=== PATIENT | female | born 1955 | race Caucasian/White ===

== ENCOUNTER 2017-02-27 12:42 | Inpatient (IN) ==
[~2017-02-27 12:42] MED LIST: *HR* Propofol 200 MG/20 ML VIAL IVP ONE
[2017-02-27] MEDS ORDERED: 0.9 % Sodium Chloride 1,000 ML IVC ONE ×2 (14:32→15:43)
[2017-02-27] MEDS ORDERED: Ondansetron 4 MG/2 ML VIAL IVP ONE (14:32)
--- NOTE | 2017-02-27 14:37 | Emergency Department Note ---
Disposition Clinical Impression: Hyperglycemia, Transaminitis, Duodenitis Abdominal pain Qualifiers: Abdominal location: unspecified location Qualified Code(s): R10.9 - Unspecified abdominal pain Anemia Qualifiers: Anemia type: unspecified type Qualified Code(s): D64.9 - Anemia, unspecified Gastritis Qualifiers: Gastritis type: unspecified gastritis Chronicity: unspecified Gastritis bleeding: presence of bleeding unspecified Qualified Code(s): K29.70 - Gastritis , unspecified, without bleeding Chronic kidney disease Qualifiers: Chronic kidney disease stage: unspecified stage Qualified Code(s): N18.9 - Chronic kidney disease, unspecified Disposition: Admitted As Inpatient Condition: Fair Recheck wound or abnormal lab - General Chief Complaint: ED Recheck/Abnormal Lab/Rx Stated Complaint: Abnormal labs, sent by PCP Time Seen by Provider: 02/27/17 14:07 Source: patient Mode of arrival: ambulatory Limitations: no limitations Nursing Notes Reviewed: Yes Vital Signs Reviewed: Yes - History of Present Illness HPI Narrative: 61-year-old female history of diabetes, COPD presents for evaluation after abnormal labs. Patient had abnormal labs obtained yesterday. Patient states she has not been feeling well for the past week. Patient describes several symptoms including nausea and vomiting. Patient also describes fevers. Patient also describes abdominal pain. Notes it to be right and left-sided. Patient states that she had lab work done and was told to come to the ER for evaluation. Patient was expecting direct admission. Patient also notes some chest pain and short of breath. Denies any urinary symptoms. No diarrhea or constipation. Patient states she has been taking her diabetes medicine as she is directed with insulin however the patient has not been taking any oral diabetes medicine for the past month. Patient states she has not taken her anxiety or pain medicine today. - Related Data Home Medications Medication Instructions Recorded Confirmed Albuterol Neb [AccuNeb] 0.63 mg IH Q6H PRN 05/30/15 02/27/17 Albuterol Sulfate [Albuterol 2 puff IH Q4HR PRN 05/30/15 02/27/17 Inhaler] Docusate [Colace] 200 mg PO DAILY 05/30/15 02/27/17 Fluticasone/Salmeterol [Advair 1 each IH BID 05/30/15 02/27/17 500-50 Diskus] Insulin ASPART [NovoLOG] 0 unit SQ TIDWM 05/30/15 02/27/17 Insulin Glargine,Hum.rec.anlog 40 unit SQ BID 05/30/15 02/27/17 [Lantus Solostar] Ipratropium/Albuterol Neb [Duoneb] 3 ml IH Q6HR PRN 05/30/15 02/27/17 Nitroglycerin 0.4 mg SL Q5MIN PRN 05/30/15 02/27/17 Levothyroxine [Synthroid] 175 mcg PO QAM 02/27/17 02/27/17 Quetiapine Fumarate [SEROquel] 25 mg PO QAM 02/27/17 02/27/17 Quetiapine Fumarate [SEROquel] 100 mg PO HS 02/27/17 02/27/17 Simvastatin [Zocor] 20 mg PO HS 02/27/17 02/27/17 carBAMazepine [Tegretol] 400 mg PO BID 02/27/17 02/27/17 Allergies Allergy/AdvReac Type Severity Reaction Status Date / Time penicillin G AdvReac Hives Verified 02/27/17 12:47 Sulfa (Sulfonamide AdvReac See Verified 02/27/17 12:47 Antibiotics) Comments sunflower oil AdvReac Swelling Verified 02/27/17 12:47 of Lip/Tongue/Throat All systems ED: reviewed and negative except as stated. Constitutional: Reports: as per HPI, fever Eyes: Reports: as per HPI ENT ED: Reports: as per HPI Cardiovascular: Reports: as per HPI, chest pain Respiratory: Reports: as per HPI, cough, dyspnea Gastrointestinal: Reports: as per HPI, abdominal pain, nausea, vomiting Genitourinary: Reports: as per HPI Musculoskeletal: Reports: as per HPI Integumentary: Reports: as per HPI Neurological: Reports: as per HPI Psychiatric: Reports: as per HPI Endocrine: Reports: as per HPI Past Medical History - Past Medical History Attestation: Yes The following information was validated with the patient. Medical history: Reports: COPD, diabetes, hypertension, kidney stones, thyroid disease Surgical history: Reports: cholecystectomy, colectomy, coronary bypass (CABG), hysterectomy Psychiatric history: Reports: anxiety, bipolar, depression TANK PUMPER history: Reports: no TANK PUMPER history - Social History Smoking Status: Former smoker Smokeless Tobacco Status: No Alcohol use: Reports: occasionally Drug use: Reports: marijuana Physical Exam - General Limitations: no limitations General appearance: alert, in no apparent distress, anxious - Head Head exam: atraumatic, normocephalic, normal inspection - Eye Eye exam: Present: normal appearance, EOMI - ENT ENT exam: normal exam, mucous membranes moist - Neck Neck exam: Present: normal inspection, trachea midline - Chest Chest inspection: Present: normal inspection, symmetric chest wall rise - Respiratory Respiratory exam: Present: prolonged expiratory phase, other (Diffusely decreased breath sounds). Absent: respiratory distress - Cardiovascular Cardiovascular exam: Present: regular rate, normal rhythm - Abdominal Exam Abdominal exam: Present: soft, Non-Tender. Absent: guarding, rebound - Extremities Exam Extremities exam: Present: normal inspection. Absent: pedal edema - Back Exam Back exam: Present: normal inspection. Absent: CVA tenderness (R), CVA tenderness (L) - Neurological Exam Neurological exam: Present: alert, oriented X3 - Skin Skin exam: Present: warm, dry, intact, normal color Course Course Narrative: Patient's labs reviewed from yesterday. Patient does have hyperglycemia as well as chronic kidney disease. Patient will get repeat lab work today including IV fluids, antibiotics, cardiac evaluation with EKG and troponin. Disposition is pending. - Reevaluation(s) Reevaluation #1: Patient primary care doctor in the ED to talk with the patient. States that the patient is not very compliant with home diabetes medicines. Time: 16:05 Reevaluation #2: Patient's lab work reviewed. Patient does not appear to be hyperglycemic. This was discussed with the patient notes that she needs better glycemic control. Patient states she has not taking of her pain medicine today. Patient will be redosed her pain medicine. Also get CT imaging of the patient' s abdomen and pelvis. Time: 16:32 Reevaluation #3: Patient updated on plan of care. Patient will be admitted for pain control, dietary modification, glycemic control. Patient does have inflammation around her liver consistent with duodenitis. Hepatitis. Patient does not have a gallbladder. Patient abdominal exam is nonsurgical. Time: 18:36 Vital Signs Temperature 98.0 F 02/27/17 12:47 Pulse Rate 81 02/27/17 12:47 Respiratory Rate 18 02/27/17 12:47 Blood Pressure 149/83 02/27/17 12:47 O2 Sat by Pulse Oximetry 98 02/27/17 12:47 Temperature 98.0 F 02/27/17 12:47 Pulse Rate 65 02/27/17 19:08 Respiratory Rate 18 02/27/17 19:11 Blood Pressure 142/58 02/27/17 19:11 O2 Sat by Pulse Oximetry 98 02/27/17 19:08 Oxygen Delivery Oxygen Delivery Room Air Recheck wound or abnormal lab - MDM Narrative Medical decision making narrative: 61-year-old female presents for evaluation for abnormal labs. Patient had multiple complaints at triage. Patient is a noncompliant diabetic. Patient's primary care physician visit in the emergency department. Patient states she does not use her insulin as she does not have time. Patient was found to be hyperglycemic. Patient was not in DKA. Patient is not acidotic or having ketones. Patient's sugar was treated with IV fluids as well as insulin. Patient's pain was treated with opiates. Patient had abdominal pelvic imaging due to chronic abdominal pain. Patient's abdominal CT shows evidence of perihepatic hepatitis as well as duodenitis gastritis. A she had lab work which confirmed the transaminitis. Patient denies history of alcohol use. Patient's lipase was normal. Patient was treated for with Protonix due to concerns of gastritis. Patient does not have a recent upper endoscopy. Patient had hepatitis C panel obtained recently which was negative. Patient will be admitted to the hospital service for further monitoring, diet control pain control as well as treating her abnormalities in her labs. Patient denies having any recent endoscopies by GI. - Lab Data Lab results reviewed: Yes I reviewed the patient's lab results. Result diagrams: 02/27/17 14:44 02/27/17 14:44 Lab Results 02/27/17 02/27/17 02/27/17 Range/Units 14:44 14:44 14:44 WBC 5.5 (4.3-11.1) K/mcL RBC 3.59 L (3.82-4.97) M/mcL Hgb 11.2 L (11.5-15.4) g/dL Hct 33.1 L (35.3-44.9) % MCV 92.2 (83.0-100.0) fL MCH 31.2 (28.0-33.3) pg MCHC 33.8 (31.6-35.5) g/dL RDW 15.7 H (11.5-14.5) % Plt Count 86 L (140-400) K/mcL MPV 11.9 (9.4-12.4) fL Immature Gran % 0.2 (0-4) % Seg Neutrophils % 58.5 % Lymphocytes % 29.9 % Monocytes % 9.5 % Eosinophils % 1.3 % Basophils % 0.6 % Neutrophils # 3.2 (1.6-8.9) K/mcL Lymphocytes # 1.6 (0.6-4.6) K/mcL Monocytes # 0.5 (0.0-1.3) K/mcL Eosinophils # 0.1 (0.0-0.6) K/mcL Basophils # 0.0 (0.0-0.2) K/mcL Immature Plt Fraction 5.3 (1.1-6.1) % VBG pH (7.32-7.42) pH Units VBG pCO2 (41-51) mmHg VBG pO2 (25-40) mmHg VBG HCO3 (21-27) mEq/L Sodium 126 L (136-145) mEq/L Potassium 4.6 H (3.5-4.5) mEq/L Chloride 96 L (98-109) mEq/L Carbon Dioxide 24 (19-29) mEq/L BUN 22 H (7-20) mg/dL Creatinine 1.23 H (0.57-1.11) mg/dL Est GFR ( Amer) 54 L (> 60) Est GFR (Non-Af Amer) 45 L (> 60) BUN/Creatinine Ratio 18 (6-26) Glucose 648 H* (70-99) mg/dL POC Glucose (58-89) Calculated Osmolality 296 (280-300) Calcium 8.5 L (8.6-10.8) mg/dL Total Bilirubin 2.2 H (0.2-1.2) mg/dL Direct Bilirubin 1.6 H (0.0-0.5) mg/dL Indirect Bilirubin 0.6 (0.0-1.2) mg/dL AST 380 H (5-34) Units/L ALT 319 H (0-55) Units/L Alkaline Phosphatase 766 H (38-126) Units/L Troponin I 0.01 (0-0.03) ng/mL Serum Total Protein 8.7 H (6.0-8.3) g/dL Albumin 2.8 L (3.5-5.0) g/dL Globulin 5.9 H (2.4-3.5) g/dL Albumin/Globulin Ratio 0.5 L (1.1-2.2) Lipase 26 (8-78) Units/L Beta-Hydroxybutyric Acd (0.02-0.27) mmol/L Urine Color (Yellow) Urine Clarity (Clear) Urine pH (5.0-8.0) pH Units Ur Specific [place] (1.010-1.025) Urine Protein (Neg-Trace) mg/dL Urine Glucose (UA) (Normal) mg/dL Urine Ketones (Negative) mg/dL Urine Blood (Negative) Urine Nitrite (Negative) Urine Bilirubin (Negative) Urine Urobilinogen (Normal) mg/dL Ur Leukocyte Esterase (Negative) Urine Microscopic RBC (0-3) per hpf Urine Microscopic WBC (0-3) per hpf Ur Squamous Epith Cells (None-Few) per lpf Urine Bacteria (None-Few) per hpf Hyaline Casts (None-Few) per lpf Ur Culture Indicated? (NO) Acetaminophen (10-30) mcg/mL 02/27/17 02/27/17 02/27/17 Range/Units 14:44 14:44 14:44 WBC (4.3-11.1) K/mcL RBC (3.82-4.97) M/mcL Hgb (11.5-15.4) g/dL Hct (35.3-44.9) % MCV (83.0-100.0) fL MCH (28.0-33.3) pg MCHC (31.6-35.5) g/dL RDW (11.5-14.5) % Plt Count (140-400) K/mcL MPV (9.4-12.4) fL Immature Gran % (0-4) % Seg Neutrophils % % Lymphocytes % % Monocytes % % Eosinophils % % Basophils % % Neutrophils # (1.6-8.9) K/mcL Lymphocytes # (0.6-4.6) K/mcL Monocytes # (0.0-1.3) K/mcL Eosinophils # (0.0-0.6) K/mcL Basophils # (0.0-0.2) K/mcL Immature Plt Fraction (1.1-6.1) % VBG pH 7.37 (7.32-7.42) pH Units VBG pCO2 43 (41-51) mmHg VBG pO2 41 H (25-40) mmHg VBG HCO3 24.9 (21-27) mEq/L Sodium (136-145) mEq/L Potassium (3.5-4.5) mEq/L Chloride (98-109) mEq/L Carbon Dioxide (19-29) mEq/L BUN (7-20) mg/dL Creatinine (0.57-1.11) mg/dL Est GFR ( Amer) (> 60) Est GFR (Non-Af Amer) (> 60) BUN/Creatinine Ratio (6-26) Glucose (70-99) mg/dL POC Glucose (58-89) Calculated Osmolality (280-300) Calcium (8.6-10.8) mg/dL Total Bilirubin (0.2-1.2) mg/dL Direct Bilirubin (0.0-0.5) mg/dL Indirect Bilirubin (0.0-1.2) mg/dL AST (5-34) Units/L ALT (0-55) Units/L Alkaline Phosphatase (38-126) Units/L Troponin I (0-0.03) ng/mL Serum Total Protein (6.0-8.3) g/dL Albumin (3.5-5.0) g/dL Globulin (2.4-3.5) g/dL Albumin/Globulin Ratio (1.1-2.2) Lipase (8-78) Units/L Beta-Hydroxybutyric Acd 0.23 (0.02-0.27) mmol/L Urine Color (Yellow) Urine Clarity (Clear) Urine pH (5.0-8.0) pH Units Ur Specific [place] (1.010-1.025) Urine Protein (Neg-Trace) mg/dL Urine Glucose (UA) (Normal) mg/dL Urine Ketones (Negative) mg/dL Urine Blood (Negative) Urine Nitrite (Negative) Urine Bilirubin (Negative) Urine Urobilinogen (Normal) mg/dL Ur Leukocyte Esterase (Negative) Urine Microscopic RBC (0-3) per hpf Urine Microscopic WBC (0-3) per hpf Ur Squamous Epith Cells (None-Few) per lpf Urine Bacteria (None-Few) per hpf Hyaline Casts (None-Few) per lpf Ur Culture Indicated? (NO) Acetaminophen < 1.0 L (10-30) mcg/mL 02/27/17 02/27/17 Range/Units 16:45 18:01 WBC (4.3-11.1) K/mcL RBC (3.82-4.97) M/mcL Hgb (11.5-15.4) g/dL Hct (35.3-44.9) % MCV (83.0-100.0) fL MCH (28.0-33.3) pg MCHC (31.6-35.5) g/dL RDW (11.5-14.5) % Plt Count (140-400) K/mcL MPV (9.4-12.4) fL Immature Gran % (0-4) % Seg Neutrophils % % Lymphocytes % % Monocytes % % Eosinophils % % Basophils % % Neutrophils # (1.6-8.9) K/mcL Lymphocytes # (0.6-4.6) K/mcL Monocytes # (0.0-1.3) K/mcL Eosinophils # (0.0-0.6) K/mcL Basophils # (0.0-0.2) K/mcL Immature Plt Fraction (1.1-6.1) % VBG pH (7.32-7.42) pH Units VBG pCO2 (41-51) mmHg VBG pO2 (25-40) mmHg VBG HCO3 (21-27) mEq/L Sodium (136-145) mEq/L Potassium (3.5-4.5) mEq/L Chloride (98-109) mEq/L Carbon Dioxide (19-29) mEq/L BUN (7-20) mg/dL Creatinine (0.57-1.11) mg/dL Est GFR ( Amer) (> 60) Est GFR (Non-Af Amer) (> 60) BUN/Creatinine Ratio (6-26) Glucose (70-99) mg/dL POC Glucose 332 H (58-89) Calculated Osmolality (280-300) Calcium (8.6-10.8) mg/dL Total Bilirubin (0.2-1.2) mg/dL Direct Bilirubin (0.0-0.5) mg/dL Indirect Bilirubin (0.0-1.2) mg/dL AST (5-34) Units/L ALT (0-55) Units/L Alkaline Phosphatase (38-126) Units/L Troponin I (0-0.03) ng/mL Serum Total Protein (6.0-8.3) g/dL Albumin (3.5-5.0) g/dL Globulin (2.4-3.5) g/dL Albumin/Globulin Ratio (1.1-2.2) Lipase (8-78) Units/L Beta-Hydroxybutyric Acd (0.02-0.27) mmol/L Urine Color Yellow (Yellow) Urine Clarity Clear (Clear) Urine pH 6.0 (5.0-8.0) pH Units Ur Specific [place] 1.027 H (1.010-1.025) Urine Protein Trace (Neg-Trace) mg/dL Urine Glucose (UA) >=1000 H (Normal) mg/dL Urine Ketones Negative (Negative) mg/dL Urine Blood Trace H (Negative) Urine Nitrite Negative (Negative) Urine Bilirubin Negative (Negative) Urine Urobilinogen Normal (Normal) mg/dL Ur Leukocyte Esterase Negative (Negative) Urine Microscopic RBC 0-3 (0-3) per hpf Urine Microscopic WBC 0-3 (0-3) per hpf Ur Squamous Epith Cells None Seen (None-Few) per lpf Urine Bacteria None Seen (None-Few) per hpf Hyaline Casts None Seen (None-Few) per lpf Ur Culture Indicated? NO (NO) Acetaminophen (10-30) mcg/mL - Radiology Data Radiology results reviewed: Yes I reviewed the patient's radiology results. Abdomen/Pelvis CT 02/27/17 16:31 IMPRESSION: Limited noncontrast study showing mottled attenuation of the liver, perihepatic and probably subcapsular fluid collections, 1 of which abuts the stomach. Inflammatory stranding is present within the right upper quadrant adjacent to the lateral segment of the liver, distal stomach, duodenum and pancreas. Correlation for pancreatitis and/or gastritis/duodenitis is recommended. Mottled attenuation of the liver could represent inflammation as well. Low-attenuation of the liver could represent inflammatory subcapsular collections. D/ / Nraa Goddard Cha, MD / Nara Goddard Cha, MD Interpreting Provider: Nara Goddard Cha, MD - EKG Data EKG attestation: Yes I reviewed and interpreted this EKG. EKG shows normal: sinus rhythm Rate: normal Rhythm: NSR [place]/QRS: left axis deviation, IVCD Interpretation: no acute changes, unchanged when compared to prior tracing (date ), nonspecific ST-T wave changes SJeaneth - Tahira Situation: Demographics Background: Presenting Complaint Assessment: Vital Signs, Course and respsone to treatment, Patient/Family Expectation Recommendation: Barrier(s) to disposition, Recommendation based on pending studies, treatments, or consults Tahira Report Given to: Dr. Tatiana Hoffmann Repor Time: 18:42 Attestation Statement - Attestation Attestation: I examined this patient and my medical decision-making was reviewed with the TRENCH TRIMMER FINE/PA/Advanced Practice Nurse/Resident Physician. I agree with the documented findings, disposition and treatment plan as described except to the extent set forth below. 61-year-old female presents ED because of abdominal pain, hyperglycemia and marketed lab abnormalities. She is being monitored by her primary care providers who have been monitoring elevations of her transaminases and alkaline phosphatase as well as very poor glycemic control. She has previously had hemoglobin A1c greater than 14. Most recently the A1c was 11. Yesterday she had labs that showed further elevation of her AST, AST and alkaline phosphatase as well as elevated bilirubin, declining renal function and marketed hyperglycemia. She was sent to the ED for further evaluation and aggressive intervention. She states she did not have time to take her insulin yesterday or today. She has maintained very poor glycemic control the past several months and most recently her glucose was greater than 900. She does have access to sliding-scale insulin but just does not seem to use it as directed. Denies associated fevers or chills. Does complain of nausea. No diarrhea. No chest pain or dyspnea. No productive cough. Patient is awake alert, appears uncomfortable and frequently tearful. Oropharynx is clear. Membranes dry. Neck supple. Chest clear to auscultation bilaterally. Abdomen soft nondistended with tenderness in the epigastrium and left upper quadrant. Extremities well-perfused, warm and dry. Labs today represented continuum of her recent abnormalities with worsening hyperglycemia and renal insufficiency. She is given IV fluids along with IV insulin. CT of the abdomen consistent with duodenitis as well as perihepatic fluid. She will be admitted for supportive care and further evaluation.
[2017-02-27 14:53] LABS: Immature Granulocytes % 0.2 % (0-4); Mean Platelet Volume 11.9 fL (9.4-12.4)
[2017-02-27 14:54] LABS: VBG HCO3 24.9 mEq/L (21-27); VBG PH 7.37 pH Units (7.32-7.42)
[2017-02-27 14:55] LABS: Basophils % 0.6 %; Eosinophils # 0.1 K/mcL (0.0-0.6); Eosinophils % 1.3 %; Hematocrit 33.1 % (35.3-44.9); Hemoglobin 11.2 g/dL (11.5-15.4); Immature Platelets 5.3 % (1.1-6.1); Lymphocytes # 1.6 K/mcL (0.6-4.6); Lymphocytes % 29.9 %; Mean Corpuscular HGB Conc 33.8 g/dL (31.6-35.5); Mean Corpuscular Hemoglobin 31.2 pg (28.0-33.3); Mean Corpuscular Volume 92.2 fL (83.0-100.0); Monocytes # 0.5 K/mcL (0.0-1.3); Monocytes % 9.5 %; Neutrophils # 3.2 K/mcL (1.6-8.9); Red Blood Count 3.59 M/mcL (3.82-4.97); Red Cell Distribution Width 15.7 % (11.5-14.5); Segmented Neutrophils % 58.5 %
[2017-02-27 15:15] LABS: Albumin 2.8 g/dL (3.5-5.0); Albumin/Globulin Ratio 0.5 (1.1-2.2); Bilirubin,Direct 1.6 mg/dL (0.0-0.5); Bilirubin,Indirect 0.6 mg/dL (0.0-1.2); Bilirubin,Total 2.2 mg/dL (0.2-1.2); Calcium 8.5 mg/dL (8.6-10.8); Globulin 5.9 g/dL (2.4-3.5); Potassium 4.6 mEq/L (3.5-4.5); Total Protein 8.7 g/dL (6.0-8.3)
[2017-02-27 15:18] LABS: Platelet Count 86 K/mcL (140-400)
[2017-02-27] MEDS ORDERED: Insulin Human Regular 10 UNIT in 0.9 % Sodium Chloride 10 ML IV ONE (15:43)
[2017-02-27] MEDS ORDERED: *HR* HYDROcodone/Acet 5/325 mg TABLET PO ONE (16:29)
[2017-02-27 16:59] LABS: Bilirubin,Urine Negative (Negative); Blood,Urine Trace (Negative); Clarity,Urine Clear (Clear); Color,Urine Yellow (Yellow); Glucose,Urine (UA) >=1000 mg/dL (Normal); Ketones,Urine Negative (Negative); Leukocyte Esterase,Urine Negative (Negative); Nitrite,Urine Negative (Negative); Protein,Urine Trace mg/dL (Neg-Trace); Specific Gravity,Urine 1.027 (1.010-1.025); Urobilinogen,Urine Normal (Normal)
[2017-02-27 17:03] LABS: Bacteria,Urine None Seen per hpf (None-Few); Hyaline Casts,Urine None Seen per lpf (None-Few); RBC,Urine 0-3 per hpf (0-3); Squamous Epithelial Cell,Urine None Seen per lpf (None-Few); WBC,Urine 0-3 per hpf (0-3)
[2017-02-27] MEDS ORDERED: *HR* Morphine 2 MG/ML SYRINGE IVP ONE (18:08)
[2017-02-27] MEDS ORDERED: Pantoprazole 40 MG VIAL IVP ONE (18:08)
[2017-02-27] MEDS ORDERED: Ondansetron 4 MG/2 ML VIAL IVP PRN (20:37)
[2017-02-27] MEDS ORDERED: Acetaminophen 325 MG TABLET PO PRN (20:37)
[2017-02-27] MEDS ORDERED: Naloxone 0.4 MG/ML INJ IVP PRN (20:37)
[2017-02-27] MEDS ORDERED: D5% in Water 1,000 ML IVC PRN (20:52)
[2017-02-27] MEDS ORDERED: Dextrose Gel 15 GM PO PRN ×2 (20:52)
[2017-02-27 21:30] LABS: INR 1.2; Prothrombin Time 13.3 Seconds (9.4-12.1)
[2017-02-27] MEDS: carBAMazepine 200 MG TABLET PO SCH (22:33)
[2017-02-27] MEDS: Insulin DETEMIR 100 UNIT/ML X5UNITS SQ SCH (22:38)
[2017-02-27] MEDS: Insulin LISPRO 300 UNITS/3 ML VIAL SQ SCH (22:38)
[2017-02-27] MEDS: *HR* Morphine 2 MG/ML SYRINGE IVP PRN (22:48)
[2017-02-27] MEDS: Budesonide/Formoterol 160/4.5 MDI IH SCH (22:53)
[2017-02-27] MEDS: 0.9 % Sodium Chloride 1,000 ML IVC SCH (22:59)
--- NOTE | 2017-02-27 23:29 | Internal Med History&Physical ---
<Cheng Correia - Last Filed: 02/27/17 23:26> Date of Encounter: 02/27/17 Time of Encounter: 23:26 Assessment and Plan (1) Abdominal pain Current visit: No Status: Acute Etiology unknown at this time however I am concerned for chronic pancreatitis. Patient reports 5 episodes of acute pancreatitis in the past and has generalized abdominal pain, worse in the epigastric area over several month period. CT scan shows some inflammatory stranding within the right upper quadrant adjacent to the liver, distal stomach, duodenum, and pancreas so inflammation of any these areas could be causing her symptoms. Lipase was 26. The pancreas appears most likely at this time we will also give PPI therapy for possible gastritis. Doubt infectious causes. Qualifiers: Abdominal location: epigastric Qualified Code(s): R10.13 - Epigastric pain (2) Transaminitis Current visit: Yes Status: Acute Patient has persistent elevation in her liver enzymes as well as total bilirubin and alkaline phosphatase. Patient does report a history of alcohol use but states she has not drank in the last 8 months. Hepatitis C antibody was negative. Likely etiologies include fatty liver in the setting of uncontrolled diabetes as well as alcoholic hepatitis. Will obtain liver ultrasound, trend hepatic panel. (3) COPD (chronic obstructive pulmonary disease) Current visit: No Status: Acute Stable at this time. No evidence of acute exacerbation. Continue aerosol treatments. Qualifiers: COPD type: chronic bronchitis Chronic bronchitis type: unspecified Qualified Code(s): J42 - Unspecified chronic bronchitis (4) CAD (coronary artery disease) Current visit: No Status: Acute Stable. Continue aspirin. Qualifiers: Coronary Disease-Associated Artery/Lesion type: bypass graft [place] vs. transplanted heart: [place] heart Associated angina: without angina Qualified Code(s): I25.810 - Atherosclerosis of coronary artery bypass graft(s) without angina pectoris (5) Type 2 diabetes mellitus Current visit: Yes Status: Acute Poorly controlled. Hemoglobin A1c performed yesterday was 11.1. Patient reports significant fluctuations in her blood sugars ranging from 200 to 900. Patient's blood sugar was 648 on presentation. No evidence of DKA, no acidosis or no anion gap. Patient's blood sugars come down into the 200s. We will continue home insulin and adjust as necessary based on blood sugar readings. Qualifiers: Diabetes mellitus complication status: with hyperglycemia Diabetes mellitus terminal make up operator insulin use: with [facility] use Qualified Code(s): E11.65 - Type 2 diabetes mellitus with hyperglycemia; Z79.4 - snf (current) use of insulin (6) Chronic kidney disease Current visit: Yes Status: Acute Creatinine at baseline. Continue to monitor. Qualifiers: Chronic kidney disease stage: stage 3 (moderate) Qualified Code(s): N18.3 - Chronic kidney disease, stage 3 (moderate) (7) DVT prophylaxis Current visit: Yes Status: Acute Heparin 5000 units subcutaneous twice a day. Internal Medicine - H&P: HPI Chief complaint: Abnormal labs Admitted From: Emergency Dept Plans for Post Hospital Care: Home History of present illness: Ms. Hernandez is a 61 year old female with history of type 2 diabetes, COPD who presents with abnormal labs. Patient reports abdominal pain for the last several months. She states that this is relatively constant and unchanged. She reports associated nausea, vomiting, loose stools. She states this is not related to eating. She states this feels similar to episodes of pancreatitis in the past. Patient also reports several episodes of syncope in which she describes standing in her bathroom having episodes where things go dark in the next day she remembers is picking herself up off the floor. She states this happened once last week and twice this previous week. Patient states she has never had anything like this before. She denies fever, chills, chest pain, shortness of breath, dysuria, lower extremity swelling. Past Med Surg Social Fam HX - Past Medical History Medical history: asthma, COPD, CVA, diabetes, hypertension, kidney stones, thyroid disease Psychiatric history: anxiety, bipolar, depression - Past Surgical History Surgical History: cholecystectomy, colectomy, coronary bypass (CABG), hysterectomy, splenectomy - Social History Smoking Status: Former smoker Smokeless Tobacco Status: No Alcohol use: none Drug use: none - Family History Father Hx Family Cardiac Disorders: Yes (MYOCARDIAL INFARCTION.) Internal Medicine - H&P: Meds Albuterol Neb [AccuNeb] 0.63 mg IH Q6H PRN 05/30/15 [History] Albuterol Sulfate [Albuterol Inhaler] 2 puff IH Q4HR PRN 05/30/15 [History] Docusate [Colace] 200 mg PO DAILY 05/30/15 [History] Fluticasone/Salmeterol [Advair 500-50 Diskus] 1 each IH BID 05/30/15 [History] Insulin ASPART [NovoLOG] 0 unit SQ TIDWM 05/30/15 [History] Insulin Glargine,Hum.rec.anlog [Lantus Solostar] 40 unit SQ BID 05/30/15 [ History] Ipratropium/Albuterol Neb [Duoneb] 3 ml IH Q6HR PRN 05/30/15 [History] Nitroglycerin 0.4 mg SL Q5MIN PRN 05/30/15 [History] Levothyroxine [Synthroid] 175 mcg PO QAM 02/27/17 [History] Quetiapine Fumarate [SEROquel] 25 mg PO QAM 02/27/17 [History] Quetiapine Fumarate [SEROquel] 100 mg PO HS 02/27/17 [History] Simvastatin [Zocor] 20 mg PO HS 02/27/17 [History] carBAMazepine [Tegretol] 400 mg PO BID 02/27/17 [History] Allergies penicillin G Adverse Reaction (Verified 02/27/17 12:47) Hives Sulfa (Sulfonamide Antibiotics) Adverse Reaction (Verified 02/27/17 12:47) See Comments listed on pcp 02-14-16 All Systems PM: A 10-system review of systems was performed and is negative for pertinent findings except as documented above in the HPI. - Constitutional Vitals: Temp Pulse Resp BP Pulse Ox 97.6 F 68 16 141/74 97 02/27/17 23:04 02/27/17 23:04 02/27/17 23:04 02/27/17 23:04 02/27/17 23:04 General appearance: Present: A&O X 3, no acute distress - Head Head exam: Present: atraumatic, normal inspection, normocephalic - Eye Eye exam: Present: EOMI, PERRL - ENT ENT exam: Present: mucous membranes moist - Respiratory Respiratory exam: Present: CTAB. Absent: rales, rhonchi, wheezes - Cardiovascular Cardiovascular exam: Present: RRR. Absent: gallop, rubs, systolic murmur - GI/Abdominal GI/Abdominal exam: Present: normal bowel sounds, soft, tenderness (Diffuse), no peritoneal signs. Absent: distended, rigid - Extremities Exam Extremities exam: Present: warm. Absent: pedal edema, tenderness - Neurological Exam Neurological exam: Present: alert, CN II-XII intact, oriented X3, no focal deficits - Skin Skin exam: Present: dry, intact, warm Internal Med - H&P Results - Labs CBC & Chem 7: 02/27/17 14:44 02/27/17 14:44 - Impressions ITS Impressions Liver Ultrasound 02/27/17 20:55 IMPRESSION: Status post cholecystectomy. Otherwise unremarkable right upper quadrant ultrasound. The liver is unremarkable without any identifiable collections. D/ 02/27/2017 23:02:02 Maximiliano Wilson MD / [email or web address] Interpreting Provider: Maximiliano Wilson MD <Vivien Crooks R - Last Filed: 03/01/17 03:39> Date of Encounter: 02/27/17 Internal Medicine - H&P: HPI History of present illness: Ms. Hernandez is a 61 year old female All Systems PM: A 10-system review of systems was performed and is negative for pertinent findings except as documented above in the HPI. - Constitutional Vitals: Temp Pulse Resp BP Pulse Ox 98.6 F 79 16 110/62 94 02/28/17 23:09 02/28/17 23:09 02/28/17 23:16 02/28/17 23:09 02/28/17 23:16 Internal Med - H&P Results - Labs CBC & Chem 7: 02/28/17 04:36 02/28/17 04:36 Labs: Short CBC 02/28/17 Range/Units 04:36 WBC 4.0 L (4.3-11.1) K/mcL Hgb 10.2 L (11.5-15.4) g/dL Hct 29.9 L (35.3-44.9) % Plt Count 70 L (140-400) K/mcL Neutrophils # 1.9 (1.6-8.9) K/mcL BMP 02/28/17 04:36 Sodium 135 L D Potassium 3.9 Chloride 106 Carbon Dioxide 25 BUN 16 Creatinine 0.88 Glucose 258 H Calcium 8.2 L Liver Function 02/28/17 Range/Units 04:36 Total Bilirubin 1.9 H (0.2-1.2) mg/dL Direct Bilirubin 1.2 H (0.0-0.5) mg/dL AST 294 H (5-34) Units/L ALT 257 H (0-55) Units/L Alkaline Phosphatase 643 H (38-126) Units/L Albumin 2.3 L (3.5-5.0) g/dL - Impressions ITS Impressions Liver Ultrasound 02/27/17 20:55 IMPRESSION: Status post cholecystectomy. Otherwise unremarkable right upper quadrant ultrasound. The liver is unremarkable without any identifiable collections. D/ /27/2017 23:02:02 Maximiliano Wilson MD / bcarter Interpreting Provider: Maximiliano Wilson MD - Attending Attestation I performed history and physical examination of the patient and discussed management with the Resident. I reviewed the Residents note and agree with documented findings and plan of care 51 Y/F with h/o uncontrolled DM (A1C: 11.1), s/p CABG, COPD, pancreatitis. H/o Abdominal pain, diarrhea, nausea and vomiting for 2 months. She was noted to have abnormal labs by PCP and sent for admission. Recurrent syncopal events while standing, for about 2 weeks. Reports dark stools. O/E: Systolic murmur present, hepatomegaly, epigastric tenderness. EKG personally reviewed by me shows: Sinus rhythm, IVCD, QTC is 465 ms Labs reviewed. Serum glucose: 648. Transaminitis present A/P: Hyperglycemia: possibly due to non-compliance / uncontrolled DM. A1C of 11. Continue home insulin and sliding scale insulin. Transaminitis: possibly due to fatty liver. Will obtain liver ultrasound and check hepatitis panel. Consider GI consult. Acute kidney injury: Pt is on IV fluids. Monitor renal function
[2017-02-27] MEDS: Ipratropium/Albuterol Neb 3 ML IH SCH (23:45)
[2017-02-27] MEDS: ALPRAZolam 1 MG TABLET PO PRN (23:52)
[2017-02-28] MEDS: Ipratropium/Albuterol Neb 3 ML IH SCH ×6 (04:18→23:12)
[2017-02-28 05:24] LABS: Basophils % 0.7 %; Eosinophils % 2.2 %; Immature Granulocytes % 0.2 % (0-4); Mean Platelet Volume 12.2 fL (9.4-12.4)
[2017-02-28 05:26] LABS: Eosinophils # 0.1 K/mcL (0.0-0.6); Hematocrit 29.9 % (35.3-44.9); Hemoglobin 10.2 g/dL (11.5-15.4); Immature Platelets 6.2 % (1.1-6.1); Lymphocytes # 1.6 K/mcL (0.6-4.6); Lymphocytes % 40.4 %; Mean Corpuscular HGB Conc 34.1 g/dL (31.6-35.5); Mean Corpuscular Hemoglobin 31.6 pg (28.0-33.3); Mean Corpuscular Volume 92.6 fL (83.0-100.0); Monocytes # 0.4 K/mcL (0.0-1.3); Monocytes % 9.4 %; Neutrophils # 1.9 K/mcL (1.6-8.9); Red Blood Count 3.23 M/mcL (3.82-4.97); Red Cell Distribution Width 15.7 % (11.5-14.5); Segmented Neutrophils % 47.1 %
[2017-02-28 05:30] LABS: Alanine Aminotransferase 257 Units/L (0-55); Albumin 2.3 g/dL (3.5-5.0); Albumin/Globulin Ratio 0.4 (1.1-2.2); Alkaline Phosphatase 643 Units/L (38-126); Aspartate Amino Transferase 294 Units/L (5-34); BUN/Creatinine Ratio 18 (6-26); Bilirubin,Direct 1.2 mg/dL (0.0-0.5); Bilirubin,Indirect 0.7 mg/dL (0.0-1.2); Bilirubin,Total 1.9 mg/dL (0.2-1.2); Blood Urea Nitrogen 16 mg/dL (7-20); Calcium 8.2 mg/dL (8.6-10.8); Carbon Dioxide 25 mEq/L (19-29); Chloride 106 mEq/L (98-109); Globulin 5.3 g/dL (2.4-3.5); Glucose 258 mg/dL (70-99); Magnesium 1.8 mg/dL (1.6-2.6); Osmolality,Calculated 290 (280-300); Phosphorous 3.8 mg/dL (2.3-4.7); Potassium 3.9 mEq/L (3.5-4.5); Sodium 135 mEq/L (136-145); Total Protein 7.6 g/dL (6.0-8.3); eGFR For African Americans > 60 (> 60); eGFR For Non-African Americans > 60 (> 60)
[2017-02-28 05:34] LABS: Platelet Count 70 K/mcL (140-400)
[2017-02-28] MEDS: *HR* Heparin 5,000 UNIT/ML VIAL SQ SCH ×2 (06:30→17:29)
[2017-02-28] MEDS: Pantoprazole 40 MG VIAL IVP SCH (06:30)
[2017-02-28] MEDS: Budesonide/Formoterol 160/4.5 MDI IH SCH ×2 (07:51→19:39)
[2017-02-28] MEDS: carBAMazepine 200 MG TABLET PO SCH ×2 (09:12→21:01)
[2017-02-28] MEDS: Insulin DETEMIR 100 UNIT/ML X5UNITS SQ SCH ×2 (09:13→21:01)
[2017-02-28] MEDS: Insulin LISPRO 300 UNITS/3 ML VIAL SQ SCH ×4 (09:13→21:01)
[2017-02-28] MEDS: ALPRAZolam 1 MG TABLET PO PRN (12:21)
[2017-02-28] MEDS: *HR* OxyCODONE Immed Rel 5 MG TABLET PO PRN (12:22)
[2017-02-28] MEDS: 0.9 % Sodium Chloride 1,000 ML IVC SCH (12:23)
[2017-02-28] MEDS: *HR* Morphine 2 MG/ML SYRINGE IVP PRN ×2 (15:48→22:01)
--- NOTE | 2017-02-28 16:04 | Internal Med Progress Note ---
Date of Encounter: 02/28/17 Time of Encounter: 14:00 - Assessment and plan (1) Pancreatitis Current Visit: Yes Status: Acute Assessment and plan: Acute on chronic. Unclear causation. Patient stating she has not drank alcohol in 8 months. No recent lipid panel, will add a.m. labs. Imaging consistent with pancreatitis versus gastritis/duodenitis. Transaminitis noted and trending down. Liver ultrasound unremarkable. We will continue with pain medication, we will refer her back to full liquid diet and advance as tolerated. Patient also with constipation with her last bowel movement 4 days ago. She has not been flatulent since admission. No signs of bowel obstruction on physical examination or on imaging however will observe closely. Will give enema and monitor her response. If no bowel movement, we will consider further imaging to rule out a bowel obstruction. Regarding her request for IV pain medication, it is legitimate and she has legitimate pain. [facility] reports checks out fine. ITS Impressions Abdomen/Pelvis CT 02/27/17 16:31 IMPRESSION: Limited noncontrast study showing mottled attenuation of the liver, perihepatic and probably subcapsular fluid collections, 1 of which abuts the stomach. Inflammatory stranding is present within the right upper quadrant adjacent to the lateral segment of the liver, distal stomach, duodenum and pancreas. Correlation for pancreatitis and/or gastritis/duodenitis is recommended. Mottled attenuation of the liver could represent inflammation as well. Low-attenuation of the liver could represent inflammatory subcapsular collections. D/ / Nara Goddard Cha, MD / Nara Goddard Cha, MD Interpreting Provider: Nara Goddard Cha, MD Liver Ultrasound 02/27/17 20:55 IMPRESSION: Status post cholecystectomy. Otherwise unremarkable right upper quadrant ultrasound. The liver is unremarkable without any identifiable collections. D/ : / 02/27/2017 23:02:02 Maximiliano Wilson MD / seema Interpreting Provider: Maximiliano Wilson MD (2) Gastritis Current Visit: Yes Status: Suspected Assessment and plan: Patient is stating that she had hematemesis 2 weeks ago as well as dark red stools. She is unclear on her timeline however this appears to be acute over the past week or 2. We will continue to trend. We will consider possible EGD/ GI consultation. She is hemodynamically stable and has not had any hematemesis or melena since admission. We will monitor. Qualifiers: Gastritis type: unspecified gastritis Chronicity: unspecified Gastritis bleeding: presence of bleeding unspecified Qualified Code(s): K29.70 - Gastritis, unspecified, without bleeding (3) Duodenitis Current Visit: Yes Status: Acute (4) Transaminitis Current Visit: Yes Status: Acute Assessment and plan: Trending down however patient still with significant abdominal pain and nausea. We will change her back to full liquid diet and trend (5) Abdominal pain Current Visit: No Status: Acute Assessment and plan: See prior note for pancreatitis Qualifiers: Abdominal location: epigastric Qualified Code(s): R10.13 - Epigastric pain (6) COPD (chronic obstructive pulmonary disease) Current Visit: No Status: Chronic Assessment and plan: No acute exacerbation. Patient is requesting assistance obtaining a nebulizer and home oxygen which she is attempting to do therapy primary care provider at the residency [facility]. environmental services tech on board. Qualifiers: COPD type: chronic bronchitis Chronic bronchitis type: unspecified Qualified Code(s): J42 - Unspecified chronic bronchitis (7) CAD (coronary artery disease) Current Visit: No Status: Chronic Qualifiers: Coronary Disease-Associated Artery/Lesion type: bypass graft [place] vs. transplanted heart: [place] heart Associated angina: without angina Qualified Code(s): I25.810 - Atherosclerosis of coronary artery bypass graft(s) without angina pectoris (8) HTN (hypertension) Current Visit: No Status: Chronic Assessment and plan: Controlled without the use of antihypertensive medication at this time, we will continue to trend. Qualifiers: Hypertension type: essential hypertension Qualified Code(s): I10 - Essential (primary) hypertension (9) Anemia Current Visit: Yes Status: Acute Assessment and plan: Mild, we will continue to trend (10) Chronic kidney disease Current Visit: Yes Status: Chronic Assessment and plan: Renal functioning currently normal. Qualifiers: Chronic kidney disease stage: stage 3 (moderate) Qualified Code(s): N18.3 - Chronic kidney disease, stage 3 (moderate) (11) Type 2 diabetes mellitus Current Visit: Yes Status: Chronic Assessment and plan: Markedly uncontrolled with an A1c of 11.1%. Glucose over 600 upon arrival. Currently in the middle 200s. Continue sliding scale. No signs of DKA. No acidosis. No anion gap. (12) DVT prophylaxis Current Visit: Yes Status: Acute Assessment and plan: Subcutaneous heparin. If indication of upper GI bleed is noted clinically, will discontinue - Subjective Interval history: Patient seen and examined. On examination, the patient sitting upright in bed. Patient is upset that her bed alarm is on. Patient is upset that she is not getting IV pain medication. Patient continues to endorse severe abdominal pain as well as nausea. She states she vomited earlier, but states she did not notify staff that she had vomited. - Constitutional Vitals: Temp Pulse Resp BP Pulse Ox 98.1 F 74 16 130/66 99 02/28/17 15:46 02/28/17 15:46 02/28/17 15:46 02/28/17 15:46 02/28/17 15:46 General appearance: Present: mild distress (2/2 pain), A&O X 3, answers questions appropriately - Head Head exam: Present: atraumatic, normocephalic - Eye Eye exam: Present: PERRL, conjuntiva pink, sclera anicteric Pupils: Present: PERRL - Neck Neck exam general surgery: Present: supple, trachea midline. Absent: lymphadenopathy - Respiratory Respiratory exam: Present: CTAB. Absent: accessory muscle use, rales, respiratory distress, rhonchi, wheezes - Cardiovascular Cardiovascular exam: Present: RRR, +S1, +S2. Absent: diastolic murmur, gallop, rubs, systolic murmur - GI/Abdominal GI/Abdominal exam: Present: distended, normal bowel sounds, soft, tenderness, no peritoneal signs - Extremities Exam Extremities exam: Present: warm, radial pulses palpable and symetrical. Absent : calf tenderness, cyanotic, pedal edema - Neurological Exam Neurological exam: Present: alert, CN II-XII intact, oriented X3, no focal deficits, strengths equal and symetr throughout. Absent: pronater drift, facial droop, speech deficit - Skin Skin exam: Present: dry, intact, pallor, warm Internal Medicine: Result - Labs CBC & Chem 7: 02/28/17 04:36 02/28/17 04:36 Labs: Short CBC 02/28/17 Range/Units 04:36 WBC 4.0 L (4.3-11.1) K/mcL Hgb 10.2 L (11.5-15.4) g/dL Hct 29.9 L (35.3-44.9) % Plt Count 70 L (140-400) K/mcL Neutrophils # 1.9 (1.6-8.9) K/mcL BMP 02/28/17 04:36 Sodium 135 L D Potassium 3.9 Chloride 106 Carbon Dioxide 25 BUN 16 Creatinine 0.88 Glucose 258 H Calcium 8.2 L Liver Function 02/28/17 Range/Units 04:36 Total Bilirubin 1.9 H (0.2-1.2) mg/dL Direct Bilirubin 1.2 H (0.0-0.5) mg/dL AST 294 H (5-34) Units/L ALT 257 H (0-55) Units/L Alkaline Phosphatase 643 H (38-126) Units/L Albumin 2.3 L (3.5-5.0) g/dL - ABG Interpretation ABG results: PT/INR, D-dimer PT 13.3 Seconds (9.4-12.1) H 02/27/17 20:57 - Impressions Impressions Liver Ultrasound 02/27/17 20:55 IMPRESSION: Status post cholecystectomy. Otherwise unremarkable right upper quadrant ultrasound. The liver is unremarkable without any identifiable collections. D/ /27/2017 23:02:02 Maximiliano Wilson MD / [email or web address] Interpreting Provider: Maximiliano Wilson MD Consult Discharge Plan - Plan Referrals: Zane Chavira DO [Primary Care Provider] -
[2017-02-28] MEDS: *HR* Promethazine 25 MG/ML VIAL IVP PRN (17:29)
--- NOTE | 2017-02-28 18:49 | Electrocardiograph Report ---
[place] [id number] Test Date: 2017-02-27 Pat Name: America Hernandez Department: 102 Room: 3B Gender: F Stand Up Forklift Operator: Pita : 1955 Requested By: Cralin De La Paz Order Number: [id number] Reading MD: Rich Gant MD Measurements Intervals [place] Rate: 71 P: 75 MS: 177 QRS: -52 QRSD: 131 T: 46 QT: 443 QTc: 465 Interpretive Statements SINUS RHYTHM MARKED LEFT AXIS DEVIATION INTRAVENTRICULAR CONDUCTION DELAY BASELINE ARTIFACT Electronically Signed On 02-28-2017 18:48:34 EDT by Rich Gant MD
[2017-03-01] MEDS: ALPRAZolam 1 MG TABLET PO PRN (00:07)
[2017-03-01] MEDS: Ipratropium/Albuterol Neb 3 ML IH SCH ×6 (03:53→23:15)
[2017-03-01 05:59] LABS: Eosinophils % 1.8 %; Hemoglobin 10.4 g/dL (11.5-15.4); Immature Granulocytes % 0.2 % (0-4); Mean Corpuscular Volume 94.2 fL (83.0-100.0)
[2017-03-01 06:00] LABS: Basophils % 0.4 %; Eosinophils # 0.1 K/mcL (0.0-0.6); Hematocrit 31.1 % (35.3-44.9); Immature Platelets 7.4 % (1.1-6.1); Lymphocytes # 1.8 K/mcL (0.6-4.6); Lymphocytes % 35.7 %; Mean Corpuscular HGB Conc 33.4 g/dL (31.6-35.5); Mean Corpuscular Hemoglobin 31.5 pg (28.0-33.3); Mean Platelet Volume 12.7 fL (9.4-12.4); Monocytes # 0.5 K/mcL (0.0-1.3); Monocytes % 9.3 %; Neutrophils # 2.6 K/mcL (1.6-8.9); Red Cell Distribution Width 16.2 % (11.5-14.5); Segmented Neutrophils % 52.6 %
[2017-03-01 06:02] LABS: Platelet Count 75 K/mcL (140-400)
[2017-03-01 06:14] LABS: Alanine Aminotransferase 274 Units/L (0-55); Albumin 2.4 g/dL (3.5-5.0); Albumin/Globulin Ratio 0.4 (1.1-2.2); Alkaline Phosphatase 645 Units/L (38-126); Aspartate Amino Transferase 375 Units/L (5-34); BUN/Creatinine Ratio 14 (6-26); Bilirubin,Direct 1.1 mg/dL (0.0-0.5); Bilirubin,Indirect 0.7 mg/dL (0.0-1.2); Bilirubin,Total 1.8 mg/dL (0.2-1.2); Blood Urea Nitrogen 12 mg/dL (7-20); Calcium 8.4 mg/dL (8.6-10.8); Carbon Dioxide 23 mEq/L (19-29); Chloride 108 mEq/L (98-109); Chol/HDL Ratio 2.7 (0-4.9); Cholesterol 159 mg/dL (< 200); Globulin 5.8 g/dL (2.4-3.5); Glucose 76 mg/dL (70-99); HDL Cholesterol 60 mg/dL (40-59); LDL Cholesterol,Calculated 78 mg/dL (0-99); Osmolality,Calculated 283 (280-300); Potassium 4.3 mEq/L (3.5-4.5); Sodium 137 mEq/L (136-145); Total Protein 8.2 g/dL (6.0-8.3); Triglycerides 106 mg/dL (< 150); eGFR For African Americans > 60 (> 60); eGFR For Non-African Americans > 60 (> 60)
[2017-03-01] MEDS: Pantoprazole 40 MG VIAL IVP SCH (06:23)
[2017-03-01] MEDS: *HR* Heparin 5,000 UNIT/ML VIAL SQ SCH ×2 (06:23→17:54)
[2017-03-01] MEDS: Insulin LISPRO 300 UNITS/3 ML VIAL SQ SCH ×4 (07:35→22:17)
[2017-03-01] MEDS: Budesonide/Formoterol 160/4.5 MDI IH SCH ×2 (07:59→19:40)
[2017-03-01] MEDS: carBAMazepine 200 MG TABLET PO SCH ×2 (08:17→22:13)
[2017-03-01] MEDS: Insulin DETEMIR 100 UNIT/ML X5UNITS SQ SCH ×2 (08:18→22:44)
[2017-03-01] MEDS: *HR* OxyCODONE Immed Rel 5 MG TABLET PO PRN (10:56)
[2017-03-01] MEDS: *HR* Morphine 2 MG/ML SYRINGE IVP PRN ×3 (13:06→22:36)
--- NOTE | 2017-03-01 15:53 | Internal Med Progress Note ---
Date of Encounter: 03/01/17 Time of Encounter: 13:00 - Assessment and plan (1) Pancreatitis Current Visit: Yes Status: Acute Assessment and plan: Acute on chronic. Unclear causation. Patient stating she has not drank alcohol in 8 months. Lipid panel unremarkable. Imaging consistent with pancreatitis versus gastritis/duodenitis. Transaminitis noted and remains stable. Liver ultrasound unremarkable. We will continue with pain medication, we will continue full liquid diet and advance as tolerated. Patient also with constipation with her last bowel movement 5 days ago. She was given an enema earlier today, but only returned brown liquid. Guiac pending. She continues to not be flatulent and her abdomen appears distended but soft but with hypoactive bowel sounds. Will obtain an acute abdominal series to rule out SBO. If no obstruction, will continue with enemas until her constipation is resolved. Will continue to address her pain. OAR[facility] reports checks out fine. ITS Impressions Abdomen/Pelvis CT 02/27/17 16:31 IMPRESSION: Limited noncontrast study showing mottled attenuation of the liver, perihepatic and probably subcapsular fluid collections, 1 of which abuts the stomach. Inflammatory stranding is present within the right upper quadrant adjacent to the lateral segment of the liver, distal stomach, duodenum and pancreas. Correlation for pancreatitis and/or gastritis/duodenitis is recommended. Mottled attenuation of the liver could represent inflammation as well. Low-attenuation of the liver could represent inflammatory subcapsular collections. D/ / Nara Goddard Cha, MD / Nara Gdodard Cha, MD Interpreting Provider: Nara Goddard Cha, MD Liver Ultrasound 02/27/17 20:55 IMPRESSION: Status post cholecystectomy. Otherwise unremarkable right upper quadrant ultrasound. The liver is unremarkable without any identifiable collections. D/ / 02/27/2017 23:02:02 Maximiliano Wilson MD / [email or web address] Interpreting Provider: Maximiliano Wilson MD (2) Gastritis Current Visit: Yes Status: Suspected Assessment and plan: Patient is stating that she had hematemesis 2 weeks ago as well as dark red stools. She is unclear on her timeline however this appears to be acute over the past week or 2. We will continue to trend. We will consider possible EGD/ GI consultation. She is hemodynamically stable and has not had any hematemesis or melena since admission. She did have dark brown stool after her enema this am- will check guiaic. Awaiting AAS to rule out SBO. Qualifiers: Gastritis type: unspecified gastritis Chronicity: unspecified Gastritis bleeding: presence of bleeding unspecified Qualified Code(s): K29.70 - Gastritis, unspecified, without bleeding (3) Duodenitis Current Visit: Yes Status: Acute (4) Transaminitis Current Visit: Yes Status: Acute Assessment and plan: Stable however patient still with significant abdominal pain and nausea. We will continue full liquid diet and trend (5) Abdominal pain Current Visit: No Status: Acute Assessment and plan: See prior note for pancreatitis Qualifiers: Abdominal location: epigastric Qualified Code(s): R10.13 - Epigastric pain (6) COPD (chronic obstructive pulmonary disease) Current Visit: No Status: Chronic Assessment and plan: No acute exacerbation. Patient is requesting assistance obtaining a nebulizer and home oxygen which she is attempting to do therapy primary care provider at the [facility]. guest services manager on board. Qualifiers: COPD type: chronic bronchitis Chronic bronchitis type: unspecified Qualified Code(s): J42 - Unspecified chronic bronchitis (7) CAD (coronary artery disease) Current Visit: No Status: Chronic Qualifiers: Coronary Disease-Associated Artery/Lesion type: bypass graft [place] vs. transplanted heart: [place] heart Associated angina: without angina Qualified Code(s): I25.810 - Atherosclerosis of coronary artery bypass graft(s) without angina pectoris (8) HTN (hypertension) Current Visit: No Status: Chronic Assessment and plan: Controlled without the use of antihypertensive medication at this time, we will continue to trend. Qualifiers: Hypertension type: essential hypertension Qualified Code(s): I10 - Essential (primary) hypertension (9) Anemia Current Visit: Yes Status: Acute Assessment and plan: Mild, we will continue to trend (10) Chronic kidney disease Current Visit: Yes Status: Chronic Assessment and plan: Renal functioning currently normal. Qualifiers: Chronic kidney disease stage: stage 3 (moderate) Qualified Code(s): N18.3 - Chronic kidney disease, stage 3 (moderate) (11) Type 2 diabetes mellitus Current Visit: Yes Status: Chronic Assessment and plan: Markedly uncontrolled with an A1c of 11.1%. Glucose over 600 upon arrival. Currently in the middle 200s. Continue sliding scale. No signs of DKA. No acidosis. No anion gap. (12) DVT prophylaxis Current Visit: Yes Status: Acute Assessment and plan: Subcutaneous heparin. If indication of upper GI bleed is noted clinically, will discontinue - Subjective Interval history: Patient seen and examined. On examination, the patient sitting upright in bed. Patient remains upset that her bed alarm is on. Patient is upset that she is not getting IV pain medication. Patient continues to endorse severe abdominal pain as well as nausea. She states she has been tolerating her liquid diet well. She is continually asking for more IV pain medication. - Constitutional Vitals: Temp Pulse Resp BP Pulse Ox 98.2 F 79 18 155/57 97 03/01/17 14:52 03/01/17 14:52 03/01/17 14:52 03/01/17 14:52 03/01/17 14:52 General appearance: Present: disheveled, mild distress (2/2 pain), A&O X 3, answers questions appropriately - Head Head exam: Present: atraumatic, normocephalic - Eye Eye exam: Present: PERRL, conjuntiva pink, sclera anicteric Pupils: Present: PERRL - Neck Neck exam general surgery: Present: supple, trachea midline. Absent: lymphadenopathy - Respiratory Respiratory exam: Present: decreased breath sounds. Absent: accessory muscle use, rales, respiratory distress, rhonchi, wheezes - Cardiovascular Cardiovascular exam: Present: RRR, +S1, +S2. Absent: diastolic murmur, gallop, rubs, systolic murmur - GI/Abdominal GI/Abdominal exam: Present: distended, hypoactive bowel sounds, soft, tenderness , no peritoneal signs - Extremities Exam Extremities exam: Present: warm, radial pulses palpable and symetrical. Absent : calf tenderness, cyanotic, pedal edema - Neurological Exam Neurological exam: Present: alert, CN II-XII intact, oriented X3, no focal deficits, strengths equal and symetr throughout. Absent: pronater drift, facial droop, speech deficit - Skin Skin exam: Present: dry, intact, pallor, warm Internal Medicine: Result - Labs CBC & Chem 7: 03/01/17 04:30 03/01/17 04:30 Labs: Short CBC 03/01/17 Range/Units 04:30 WBC 4.9 (4.3-11.1) K/mcL Hgb 10.4 L (11.5-15.4) g/dL Hct 31.1 L (35.3-44.9) % Plt Count 75 L (140-400) K/mcL Neutrophils # 2.6 (1.6-8.9) K/mcL BMP 03/01/17 04:30 Sodium 137 Potassium 4.3 Chloride 108 Carbon Dioxide 23 BUN 12 Creatinine 0.86 Glucose 76 Calcium 8.4 L Liver Function 03/01/17 Range/Units 04:30 Total Bilirubin 1.8 H (0.2-1.2) mg/dL Direct Bilirubin 1.1 H (0.0-0.5) mg/dL AST 375 H (5-34) Units/L ALT 274 H (0-55) Units/L Alkaline Phosphatase 645 H (38-126) Units/L Albumin 2.4 L (3.5-5.0) g/dL - ABG Interpretation ABG results: PT/INR, D-dimer PT 13.3 Seconds (9.4-12.1) H 02/27/17 20:57 - Impressions Impressions Liver Ultrasound 02/27/17 20:55 IMPRESSION: Status post cholecystectomy. Otherwise unremarkable right upper quadrant ultrasound. The liver is unremarkable without any identifiable collections. D/ /27/2017 23:02:02 Maximiliano Wilson MD / seema Interpreting Provider: Maximiliano Wilson MD Consult Discharge Plan - Plan Referrals: Zane Chavira DO [Primary Care Provider] -
--- NOTE | 2017-03-01 17:50 | Event Note ---
Date of Encounter: 03/01/17 Time of Encounter: 17:48 Acute abdominal series consistent with possible ileus with dilated ascending and transverse colon. Mild to moderate stool volume. Patient will now be nothing by mouth with an NG tube placed. We will try to treat conservatively with bowel rest. Consider surgical consult if indicated. Continue with pain and nausea control. Spoke to the patient who states that she would "do anything to get rid of this pain." ITS Impressions Chest/Abdomen X-ray 03/01/17 15:54 IMPRESSION: 1. Interstitial pulmonary edema. 2. Suspicion for trace bilateral effusions. 3. Dilation of the ascending and transverse colon potentially related to ileus. 4. Mild to moderate stool volume. D/ / Cheng Macias MD / Cheng Macias MD Interpreting Provider: Cheng Macias MD
[2017-03-01] MEDS: 0.9 % Sodium Chloride 1,000 ML IVC SCH (17:55)
[2017-03-01] MEDS ORDERED: *HR* Morphine 2 MG/ML SYRINGE IVP ONE (18:22)
[2017-03-01] MEDS ORDERED: Chloraseptic Spray 177 ML BOTTLE MM PRN (18:22)
--- NOTE | 2017-03-01 18:26 | Event Note ---
Date of Encounter: 03/01/17 Time of Encounter: 18:24 16Fr NG tube placed to left nare without difficulty. Patient tolerated procedure well. Placement confirmed with air bolus and return of gastric contents. Placed to low wall suction. Will check AAS to confirm location. Chloraseptic spray prn. Changed Xanax to Lorazepam. Increased Morphine dosage as patient stating her pain is not controlled. Immediate return of gastric contents and large amount of air noted after tube placement.
[2017-03-01] MEDS: *HR* LORazepam 2 MG/ML VIAL IVP PRN (18:49)
[2017-03-02] MEDS: *HR* LORazepam 2 MG/ML VIAL IVP PRN ×2 (01:14→20:32)
[2017-03-02] MEDS: Ipratropium/Albuterol Neb 3 ML IH SCH ×6 (04:06→23:15)
[2017-03-02 04:51] LABS: Immature Granulocytes % 0.3 % (0-4); Mean Corpuscular Volume 93.4 fL (83.0-100.0); Monocytes % 8.9 %; Red Cell Distribution Width 16.1 % (11.5-14.5)
[2017-03-02 04:53] LABS: Basophils % 0.5 %; Eosinophils # 0.2 K/mcL (0.0-0.6); Eosinophils % 2.9 %; Hemoglobin 11.6 g/dL (11.5-15.4); Immature Platelets 8.4 % (1.1-6.1); Lymphocytes % 32.1 %; Mean Corpuscular HGB Conc 34.1 g/dL (31.6-35.5); Mean Corpuscular Hemoglobin 31.9 pg (28.0-33.3); Mean Platelet Volume 12.7 fL (9.4-12.4); Monocytes # 0.6 K/mcL (0.0-1.3); Neutrophils # 3.5 K/mcL (1.6-8.9); Red Blood Count 3.64 M/mcL (3.82-4.97); Segmented Neutrophils % 55.3 %
[2017-03-02 04:54] LABS: Platelet Count 86 K/mcL (140-400)
[2017-03-02 05:08] LABS: Alanine Aminotransferase 279 Units/L (0-55); Albumin 2.5 g/dL (3.5-5.0); Albumin/Globulin Ratio 0.4 (1.1-2.2); Alkaline Phosphatase 684 Units/L (38-126); Aspartate Amino Transferase 390 Units/L (5-34); BUN/Creatinine Ratio 15 (6-26); Bilirubin,Direct 1.4 mg/dL (0.0-0.5); Bilirubin,Indirect 0.7 mg/dL (0.0-1.2); Bilirubin,Total 2.1 mg/dL (0.2-1.2); Blood Urea Nitrogen 12 mg/dL (7-20); Calcium 8.4 mg/dL (8.6-10.8); Carbon Dioxide 25 mEq/L (19-29); Chloride 105 mEq/L (98-109); Globulin 6.1 g/dL (2.4-3.5); Glucose 54 mg/dL (70-99); Osmolality,Calculated 281 (280-300); Potassium 4.2 mEq/L (3.5-4.5); Sodium 137 mEq/L (136-145); Total Protein 8.6 g/dL (6.0-8.3); eGFR For African Americans > 60 (> 60); eGFR For Non-African Americans > 60 (> 60)
[2017-03-02] MEDS: *HR* Heparin 5,000 UNIT/ML VIAL SQ SCH ×2 (06:03→17:28)
[2017-03-02] MEDS: Pantoprazole 40 MG VIAL IVP SCH (06:03)
[2017-03-02] MEDS: *HR* Dextrose 50 % in Water (Syg) 50 ML SYRINGE IVP PRN ×4 (06:10→20:29)
[2017-03-02] MEDS: *HR* Morphine 2 MG/ML SYRINGE IVP PRN ×3 (06:13→15:23)
[2017-03-02] MEDS: Insulin LISPRO 300 UNITS/3 ML VIAL SQ SCH ×3 (07:20→20:33)
[2017-03-02] MEDS: carBAMazepine 200 MG TABLET PO SCH ×3 (07:21→20:32)
[2017-03-02] MEDS: Insulin DETEMIR 100 UNIT/ML X5UNITS SQ SCH (07:24)
[2017-03-02] MEDS: Budesonide/Formoterol 160/4.5 MDI IH SCH ×2 (07:32→19:49)
[2017-03-02] MEDS ORDERED: Insulin DETEMIR 100 UNIT/ML X5UNITS SQ SCH ×2 (08:55→09:20)
[2017-03-02] MEDS ORDERED: Insulin LISPRO 300 UNITS/3 ML VIAL SQ SCH (08:55)
[2017-03-02] MEDS: Levothyroxine Sodium 100 MCG VIAL IVP SCH (09:46)
[2017-03-02] MEDS: 0.9 % Sodium Chloride 1,000 ML IVC SCH (10:01)
--- NOTE | 2017-03-02 14:46 | Internal Med Progress Note ---
Date of Encounter: 03/02/17 Time of Encounter: 11:30 - Assessment and plan (1) Ileus Current Visit: Yes Status: Acute Assessment and plan: As suspected, imaging yesterday consistent with development of an ileus. Patient's upper abdomen was distended and markedly tender with hypoactive bowel sounds. Liquid diet stopped yesterday and she was made NPO. I placed a 16fr NG tube to her left nare. Continue low wall suctioning. Abdominal distention lessened greatly after NG tube placement. Will attempt to conservatively manage with bowel rest and pain control. Will repeat abdominal CT tonight. Will consult surgery if indicated. Patient stating she has had several abdominal surgeries in the past but she is not sure what they were. She states they were all done here at [facility], but I cannot find any evidence of that in [facility] or [email or web address]. She has a listed history of prior colectomy. Will await CT results ITS Impressions Chest/Abdomen X-ray 03/01/17 15:54 IMPRESSION: 1. Interstitial pulmonary edema. 2. Suspicion for trace bilateral effusions. 3. Dilation of the ascending and transverse colon potentially related to ileus. 4. Mild to moderate stool volume. D/ / Cheng Macias MD / Cheng Macias MD Interpreting Provider: Cheng Macias MD X-Ray 03/01/17 18:31 IMPRESSION: Tip of nasogastric tube overlies the gastric fundus, with side hole at the gastroesophageal junction. Advancement is suggested. D/ / Sumit Cassidy MD / Sumit Cassidy MD Interpreting Provider: Sumit Cassidy MD X-Ray 03/01/17 22:54 IMPRESSION: Slight advancement of the gastric tube with the tip in the lateral gastric fundus. The sideport is now below the level of the gastroesophageal junction within the fundus D/ / Cheng Macias MD / Cheng Macias MD Interpreting Provider: Cheng Macias MD (2) Pancreatitis Current Visit: Yes Status: Acute Assessment and plan: Acute on chronic. Unclear causation. Patient stating she has not drank alcohol in 8 months. Lipid panel unremarkable. Imaging consistent with pancreatitis versus gastritis/duodenitis. Transaminitis noted and remains stable. Liver ultrasound unremarkable. We will continue with pain medication, NPO now that she has developed an ileus. Patient also with constipation with her last bowel movement 6 days ago. She was given an enema yesterday, but only returned brown liquid. Guiac still pending. She continues to not be flatulent and her abdomen appears less distended and remains soft. Hypoactive bowel sounds to RUQ; normal elswhere. Will continue to address her pain. OARRS reports checks out fine. ITS Impressions Abdomen/Pelvis CT 02/27/17 16:31 IMPRESSION: Limited noncontrast study showing mottled attenuation of the liver, perihepatic and probably subcapsular fluid collections, 1 of which abuts the stomach. Inflammatory stranding is present within the right upper quadrant adjacent to the lateral segment of the liver, distal stomach, duodenum and pancreas. Correlation for pancreatitis and/or gastritis/duodenitis is recommended. Mottled attenuation of the liver could represent inflammation as well. Low-attenuation of the liver could represent inflammatory subcapsular collections. D/ / Nara Goddard Cha, MD / Nara Goddard Cha, MD Interpreting Provider: Nara Goddard Cha, MD Liver Ultrasound 02/27/17 20:55 IMPRESSION: Status post cholecystectomy. Otherwise unremarkable right upper quadrant ultrasound. The liver is unremarkable without any identifiable collections. D/ / 02/27/2017 23:02:02 Maximiliano Wilson MD / seema Interpreting Provider: Maximiliano Wilson MD (3) Gastritis Current Visit: Yes Status: Suspected Assessment and plan: Patient is stating that she had hematemesis 2 weeks ago as well as dark red stools. She is unclear on her timeline however this appears to be acute over the past week or 2. We will continue to trend. We will consider possible EGD/ GI consultation. Also considering surgery consult if conservative measurements prove futile. She is hemodynamically stable and has not had any hematemesis or melena since admission. She did have dark brown stool after her enema yesterday - will check guiaic. Qualifiers: Gastritis type: unspecified gastritis Chronicity: unspecified Gastritis bleeding: presence of bleeding unspecified Qualified Code(s): K29.70 - Gastritis, unspecified, without bleeding (4) Duodenitis Current Visit: Yes Status: Acute (5) Transaminitis Current Visit: Yes Status: Acute Assessment and plan: Stable however patient still with significant abdominal pain and nausea. (6) Abdominal pain Current Visit: No Status: Acute Assessment and plan: See prior note for pancreatitis Qualifiers: Abdominal location: epigastric Qualified Code(s): R10.13 - Epigastric pain (7) COPD (chronic obstructive pulmonary disease) Current Visit: No Status: Chronic Assessment and plan: No acute exacerbation. Patient is requesting assistance obtaining a nebulizer and home oxygen which she is attempting to do therapy [facility]. member services coordinator on board. Qualifiers: COPD type: chronic bronchitis Chronic bronchitis type: unspecified Qualified Code(s): J42 - Unspecified chronic bronchitis (8) CAD (coronary artery disease) Current Visit: No Status: Chronic Qualifiers: Coronary Disease-Associated Artery/Lesion type: bypass graft [place] vs. transplanted heart: [place] heart Associated angina: without angina Qualified Code(s): I25.810 - Atherosclerosis of coronary artery bypass graft(s) without angina pectoris (9) HTN (hypertension) Current Visit: No Status: Chronic Assessment and plan: Controlled without the use of antihypertensive medication at this time, we will continue to trend. Qualifiers: Hypertension type: essential hypertension Qualified Code(s): I10 - Essential (primary) hypertension (10) Anemia Current Visit: Yes Status: Acute Assessment and plan: Mild, we will continue to trend (11) Chronic kidney disease Current Visit: Yes Status: Chronic Assessment and plan: Renal functioning currently normal. Qualifiers: Chronic kidney disease stage: stage 3 (moderate) Qualified Code(s): N18.3 - Chronic kidney disease, stage 3 (moderate) (12) Type 2 diabetes mellitus Current Visit: Yes Status: Chronic Assessment and plan: Markedly uncontrolled with an A1c of 11.1%. Glucose over 600 upon arrival. She has had 2 hypoglycemic episodes despite basal and ACHS dosing being decreased. She remains NPO- will hold basal at this time and continue low dose sliding scale ACHS. Changing IVF to D545. No signs of DKA. No acidosis. No anion gap. (13) DVT prophylaxis Current Visit: Yes Status: Acute Assessment and plan: Subcutaneous heparin. If indication of upper GI bleed is noted clinically, will discontinue (14) History of seizures Current Visit: Yes Status: Chronic Assessment and plan: No seizure-like activity since admission. Nursing staff has been instructed to crush her to seizure medications and hold suction for 1 hour after each medication. - Subjective Interval history: Patient seen and examined. On examination, the patient sitting upright in bed. Patient appears more comfortable than yesterday but still complains of abdominal pain. She states she wants to eat and drink. She is again asking for more pain medication. - Constitutional Vitals: Temp Pulse Resp BP Pulse Ox 98.0 F 75 18 137/77 95 03/02/17 10:46 03/02/17 10:46 03/02/17 11:31 03/02/17 10:46 03/02/17 11:31 General appearance: Present: disheveled, A&O X 3, no acute distress, answers questions appropriately - Head Head exam: Present: atraumatic, normocephalic - Eye Eye exam: Present: PERRL, conjuntiva pink, sclera anicteric Pupils: Present: PERRL - Expanded ENT Exam Teeth exam: Present: edentulous - Neck Neck exam general surgery: Present: supple, trachea midline. Absent: lymphadenopathy - Respiratory Respiratory exam: Present: decreased breath sounds. Absent: accessory muscle use, rales, respiratory distress, rhonchi, wheezes - Cardiovascular Cardiovascular exam: Present: RRR, +S1, +S2. Absent: diastolic murmur, gallop, rubs, systolic murmur - GI/Abdominal GI/Abdominal exam: Present: diminished bowel sounds (no bowel sounds RUQ), distended, guarding, hypoactive bowel sounds, soft, tenderness, no peritoneal signs - Extremities Exam Extremities exam: Present: warm, radial pulses palpable and symetrical. Absent : calf tenderness, cyanotic, pedal edema - Neurological Exam Neurological exam: Present: alert, CN II-XII intact, oriented X3, no focal deficits, strengths equal and symetr throughout. Absent: pronater drift, facial droop, speech deficit - Skin Skin exam: Present: dry, intact, pallor, warm Internal Medicine: Result - Labs CBC & Chem 7: 03/02/17 04:19 03/02/17 04:19 Labs: Short CBC 03/02/17 Range/Units 04:19 WBC 6.3 (4.3-11.1) K/mcL Hgb 11.6 (11.5-15.4) g/dL Hct 34.0 L (35.3-44.9) % Plt Count 86 L (140-400) K/mcL Neutrophils # 3.5 (1.6-8.9) K/mcL BMP 03/02/17 04:19 Sodium 137 Potassium 4.2 Chloride 105 Carbon Dioxide 25 BUN 12 Creatinine 0.81 Glucose 54 L Calcium 8.4 L Liver Function 03/02/17 Range/Units 04:19 Total Bilirubin 2.1 H (0.2-1.2) mg/dL Direct Bilirubin 1.4 H (0.0-0.5) mg/dL AST 390 H (5-34) Units/L ALT 279 H (0-55) Units/L Alkaline Phosphatase 684 H (38-126) Units/L Albumin 2.5 L (3.5-5.0) g/dL - ABG Interpretation ABG results: PT/INR, D-dimer PT 13.3 Seconds (9.4-12.1) H 02/27/17 20:57 - Impressions Impressions KUB X-Ray 03/01/17 18:31 IMPRESSION: Tip of nasogastric tube overlies the gastric fundus, with side hole at the gastroesophageal junction. Advancement is suggested. D/ / Sumit Cassidy MD / Sumit Cassidy MD Interpreting Provider: Sumit Cassidy MD X-Ray 03/01/17 22:54 IMPRESSION: Slight advancement of the gastric tube with the tip in the lateral gastric fundus. The sideport is now below the level of the gastroesophageal junction within the fundus. D/ / Cheng Macias MD / Cheng Macias MD Interpreting Provider: Cheng Macias MD Consult Discharge Plan - Plan Referrals: Zane Chavira DO [Primary Care Provider] -
[2017-03-02] MEDS: D5% in 0.45% NACL 1,000 ML IVC SCH (15:24)
[2017-03-03] MEDS: *HR* Morphine 2 MG/ML SYRINGE IVP PRN ×3 (02:42→22:22)
[2017-03-03] MEDS: *HR* Promethazine 25 MG/ML VIAL IVP PRN (02:46)
[2017-03-03] MEDS: Ipratropium/Albuterol Neb 3 ML IH SCH ×6 (03:44→23:12)
[2017-03-03 04:28] LABS: Basophils % 0.6 %; Immature Granulocytes % 0.2 % (0-4); Mean Corpuscular Volume 94.8 fL (83.0-100.0)
[2017-03-03 04:30] LABS: Eosinophils # 0.1 K/mcL (0.0-0.6); Eosinophils % 2.5 %; Hematocrit 36.8 % (35.3-44.9); Hemoglobin 12.4 g/dL (11.5-15.4); Immature Platelets 6.1 % (1.1-6.1); Lymphocytes # 1.6 K/mcL (0.6-4.6); Lymphocytes % 32.8 %; Mean Corpuscular HGB Conc 33.7 g/dL (31.6-35.5); Mean Platelet Volume 11.7 fL (9.4-12.4); Monocytes # 0.4 K/mcL (0.0-1.3); Neutrophils # 2.6 K/mcL (1.6-8.9); Red Blood Count 3.88 M/mcL (3.82-4.97); Red Cell Distribution Width 16.1 % (11.5-14.5); Segmented Neutrophils % 54.9 %
[2017-03-03 04:34] LABS: Platelet Count 78 K/mcL (140-400)
[2017-03-03 04:45] LABS: Alanine Aminotransferase 264 Units/L (0-55); Albumin 2.6 g/dL (3.5-5.0); Albumin/Globulin Ratio 0.4 (1.1-2.2); Alkaline Phosphatase 711 Units/L (38-126); Aspartate Amino Transferase 375 Units/L (5-34); BUN/Creatinine Ratio 11 (6-26); Bilirubin,Direct 1.3 mg/dL (0.0-0.5); Bilirubin,Indirect 0.8 mg/dL (0.0-1.2); Bilirubin,Total 2.1 mg/dL (0.2-1.2); Blood Urea Nitrogen 9 mg/dL (7-20); Calcium 8.6 mg/dL (8.6-10.8); Carbon Dioxide 24 mEq/L (19-29); Chloride 105 mEq/L (98-109); Globulin 6.5 g/dL (2.4-3.5); Glucose 82 mg/dL (70-99); Osmolality,Calculated 280 (280-300); Sodium 136 mEq/L (136-145); Total Protein 9.1 g/dL (6.0-8.3); eGFR For African Americans > 60 (> 60); eGFR For Non-African Americans > 60 (> 60)
[2017-03-03] MEDS: D5% in 0.45% NACL 1,000 ML IVC SCH ×2 (05:05→21:08)
[2017-03-03] MEDS: *HR* Heparin 5,000 UNIT/ML VIAL SQ SCH (05:05)
[2017-03-03] MEDS: Pantoprazole 40 MG VIAL IVP SCH (05:05)
[2017-03-03] MEDS: Ondansetron 4 MG/2 ML VIAL IVP PRN (06:47)
[2017-03-03] MEDS: Budesonide/Formoterol 160/4.5 MDI IH SCH ×2 (07:41→19:57)
[2017-03-03] MEDS: Insulin LISPRO 300 UNITS/3 ML VIAL SQ SCH ×4 (08:19→21:08)
--- NOTE | 2017-03-03 08:36 | Internal Med Progress Note ---
Date of Encounter: 03/03/17 Time of Encounter: 10:30 - Assessment and plan (1) Ileus Current Visit: Yes Status: Resolved Assessment and plan: Repeat abdominal CT report has not loaded, impressions were faxed. Ileus appears to have resolved. No signs of ilieus or obstruction on repeat CT. Will discontinue her NG tube. GI has been brought on board as the repeat CT of the abdomen and pelvis revealing gastritis versus neoplasm with retroperitoneal adenopathy as well as adenopathy within the lower chest. Appreciate GI recommendations. CT did reveal continued constipation and bladder distention, bladder scan ordered as well as more enemas. 03/02/17: CT of abdomen and pelvis with contrast impression: Trace bilateral pleural effusions and bibasilar atelectasis. Mural thickening is demonstrated of the stomach which can relate to gastritis or any appropriate clinical setting , neoplasm. There is also retroperitoneal adenopathy and adenopathy within the lower chest which can be reactive or neoplastic. Follow-up to resolution is recommended. Fecal loading of the colon. Marked bladder distention. 03/02/17 As suspected, imaging yesterday consistent with development of an ileus. Patient's upper abdomen was distended and markedly tender with hypoactive bowel sounds. Liquid diet stopped yesterday and she was made NPO. I placed a 16fr NG tube to her left nare. Continue low wall suctioning. Abdominal distention lessened greatly after NG tube placement. Will attempt to conservatively manage with bowel rest and pain control. Will repeat abdominal CT tonight. Will consult surgery if indicated. Patient stating she has had several abdominal surgeries in the past but she is not sure what they were. She states they were all done here at [facility], but I cannot find any evidence of that in [facility] or [facility]. She has a listed history of prior colectomy. Will await CT results ITS Impressions Chest/Abdomen X-ray 03/01/17 15:54 IMPRESSION: 1. Interstitial pulmonary edema. 2. Suspicion for trace bilateral effusions. 3. Dilation of the ascending and transverse colon potentially related to ileus. 4. Mild to moderate stool volume. D/ / Cheng Macias MD / Cheng Macias MD Interpreting Provider: Cheng Macias MD X-Ray 03/01/17 18:31 IMPRESSION: Tip of nasogastric tube overlies the gastric fundus, with side hole at the gastroesophageal junction. Advancement is suggested. D/ / Sumit Cassidy MD / Sumit Cassidy MD Interpreting Provider: Sumit Cassidy MD X-Ray 03/01/17 22:54 IMPRESSION: Slight advancement of the gastric tube with the tip in the lateral gastric fundus. The sideport is now below the level of the gastroesophageal junction within the fundus D/ / Cheng Macias MD / Cheng Macias MD Interpreting Provider: Cheng Macias MD (2) Pancreatitis Current Visit: Yes Status: Acute Assessment and plan: Acute on chronic. Unclear causation. Patient stating she has not drank alcohol in 8 months. Lipid panel unremarkable. Initial imaging consistent with pancreatitis versus gastritis/duodenitis. Transaminitis noted and remains stable. Liver ultrasound unremarkable. We will continue with pain medication. Patient also with constipation with her last bowel movement 6 days ago-will give more enemas. Ileus has resolved. Guiac still pending. GI on board, appreciate their recommendations ITS Impressions Abdomen/Pelvis CT 02/27/17 16:31 IMPRESSION: Limited noncontrast study showing mottled attenuation of the liver, perihepatic and probably subcapsular fluid collections, 1 of which abuts the stomach. Inflammatory stranding is present within the right upper quadrant adjacent to the lateral segment of the liver, distal stomach, duodenum and pancreas. Correlation for pancreatitis and/or gastritis/duodenitis is recommended. Mottled attenuation of the liver could represent inflammation as well. Low-attenuation of the liver could represent inflammatory subcapsular collections. D/ / Nara Goddard Cha, MD / Nara Goddard Cha, MD Interpreting Provider: Nara Goddard Cha, MD Liver Ultrasound 02/27/17 20:55 IMPRESSION: Status post cholecystectomy. Otherwise unremarkable right upper quadrant ultrasound. The liver is unremarkable without any identifiable collections. D/ / 02/27/2017 23:02:02 Maximiliano Wilson MD / bcavinny Interpreting Provider: Maximiliano Wilson MD Qualifiers: Chronicity: chronic Pancreatitis type: unspecified pancreatitis type Qualified Code(s): K86.1 - Other chronic pancreatitis (3) Gastritis Current Visit: Yes Status: Suspected Assessment and plan: Patient is stating that she had hematemesis 2 weeks ago as well as dark red stools. She is unclear on her timeline however this appears to be acute over the past week or 2. She has not had any evidence of hematemesis or melena since admission, however guaiac is still pending. GI has been brought on board , appreciate their recommendations. Qualifiers: Gastritis type: unspecified gastritis Chronicity: unspecified Gastritis bleeding: presence of bleeding unspecified Qualified Code(s): K29.70 - Gastritis, unspecified, without bleeding (4) Duodenitis Current Visit: Yes Status: Resolved (5) Transaminitis Current Visit: Yes Status: Acute Assessment and plan: Stable, GI on board (6) Abdominal pain Current Visit: No Status: Acute Assessment and plan: See prior note for pancreatitis Qualifiers: Abdominal location: epigastric Qualified Code(s): R10.13 - Epigastric pain (7) COPD (chronic obstructive pulmonary disease) Current Visit: No Status: Chronic Assessment and plan: No acute exacerbation. Patient is requesting assistance obtaining a nebulizer and home oxygen which she is attempting to do therapy primary care provider at the [facility]. emergency services dispatcher on board. Qualifiers: COPD type: chronic bronchitis Chronic bronchitis type: unspecified Qualified Code(s): J42 - Unspecified chronic bronchitis (8) CAD (coronary artery disease) Current Visit: No Status: Chronic Qualifiers: Coronary Disease-Associated Artery/Lesion type: bypass graft [place] vs. transplanted heart: [place] heart Associated angina: without angina Qualified Code(s): I25.810 - Atherosclerosis of coronary artery bypass graft(s) without angina pectoris (9) HTN (hypertension) Current Visit: No Status: Chronic Assessment and plan: Controlled without the use of antihypertensive medication at this time, we will continue to trend. Qualifiers: Hypertension type: essential hypertension Qualified Code(s): I10 - Essential (primary) hypertension (10) Anemia Current Visit: Yes Status: Acute Assessment and plan: Mild/currently resolved, we will continue to trend Qualifiers: Anemia type: unspecified type Qualified Code(s): D64.9 - Anemia, unspecified (11) Thrombocytopenia Current Visit: Yes Status: Acute Assessment and plan: Acute on chronic since the end of last month. Unclear causation, GI is on board. We will stop heparin (12) Chronic kidney disease Current Visit: Yes Status: Chronic Assessment and plan: Renal functioning currently normal. Qualifiers: Chronic kidney disease stage: stage 3 (moderate) Qualified Code(s): N18.3 - Chronic kidney disease, stage 3 (moderate) (13) Type 2 diabetes mellitus Current Visit: Yes Status: Chronic Assessment and plan: Markedly uncontrolled with an A1c of 11.1%. Glucose over 600 upon arrival. She has had a few uneventful hypoglycemic episodes despite basal and ACHS dosing being decreased so her basal was stopped altogether and she was placed on low dose sliding scale. Will monitor and adjust medications when the patient is able to start drinking/eating again. Changed IVF to D545. No signs of DKA. No acidosis. No anion gap. Qualifiers: Diabetes mellitus complication status: with hyperglycemia Diabetes mellitus termite renewal inspector insulin use: with fpc use Qualified Code(s): E11.65 - Type 2 diabetes mellitus with hyperglycemia; Z79.4 - correction (current) use of insulin (14) DVT prophylaxis Current Visit: Yes Status: Acute Assessment and plan: Subcutaneous heparin stopped 2/2 thrombocytopenia and + guiaic. IPC's ordered (15) History of seizures Current Visit: Yes Status: Chronic Assessment and plan: No seizure-like activity since admission. NG tube has been discontinued - Subjective Interval history: Patient seen and examined. On examination, the patient sitting upright in bed. Patient appears more comfortable than yesterday and states she wants to eat and wants to go home "right now so I can pay the bills." - Constitutional Vitals: Temp Pulse Resp BP Pulse Ox 98.8 F 75 17 131/64 93 03/03/17 07:42 03/03/17 07:42 03/03/17 07:42 03/03/17 07:42 03/03/17 07:42 General appearance: Present: disheveled, A&O X 3, no acute distress, answers questions appropriately - Head Head exam: Present: atraumatic, normocephalic - Eye Eye exam: Present: PERRL, conjuntiva pink, sclera anicteric Pupils: Present: PERRL - Neck Neck exam general surgery: Present: supple, trachea midline. Absent: lymphadenopathy - Respiratory Respiratory exam: Present: decreased breath sounds. Absent: accessory muscle use, rales, respiratory distress, rhonchi, wheezes - Cardiovascular Cardiovascular exam: Present: RRR, +S1, +S2. Absent: diastolic murmur, gallop, rubs, systolic murmur - GI/Abdominal GI/Abdominal exam: Present: normal bowel sounds, soft, tenderness (diffuse), no peritoneal signs. Absent: distended - Extremities Exam Extremities exam: Present: warm, radial pulses palpable and symetrical. Absent : calf tenderness, cyanotic, pedal edema - Neurological Exam Neurological exam: Present: alert, CN II-XII intact, oriented X3, no focal deficits, strengths equal and symetr throughout. Absent: pronater drift, facial droop, speech deficit - Skin Skin exam: Present: dry, intact, normal color, warm Internal Medicine: Result - Labs CBC & Chem 7: 03/03/17 04:02 03/03/17 04:02 Labs: Short CBC 03/03/17 Range/Units 04:02 WBC 4.8 (4.3-11.1) K/mcL Hgb 12.4 (11.5-15.4) g/dL Hct 36.8 (35.3-44.9) % Plt Count 78 L (140-400) K/mcL Neutrophils # 2.6 (1.6-8.9) K/mcL BMP 03/03/17 04:02 Sodium 136 Potassium 4.0 Chloride 105 Carbon Dioxide 24 BUN 9 Creatinine 0.79 Glucose 82 Calcium 8.6 Liver Function 03/03/17 Range/Units 04:02 Total Bilirubin 2.1 H (0.2-1.2) mg/dL Direct Bilirubin 1.3 H (0.0-0.5) mg/dL AST 375 H (5-34) Units/L ALT 264 H (0-55) Units/L Alkaline Phosphatase 711 H (38-126) Units/L Albumin 2.6 L (3.5-5.0) g/dL - ABG Interpretation ABG results: PT/INR, D-dimer PT 13.3 Seconds (9.4-12.1) H 02/27/17 20:57 Consult Discharge Plan - Plan Referrals: Zane Chavira DO [Primary Care Provider] -
[2017-03-03] MEDS: Levothyroxine Sodium 100 MCG VIAL IVP SCH (10:14)
[2017-03-03] MEDS: *HR* LORazepam 2 MG/ML VIAL IVP PRN (10:14)
[2017-03-03] MEDS: carBAMazepine 200 MG TABLET PO SCH ×2 (10:14→21:08)
[2017-03-03] MEDS: ALPRAZolam 1 MG TABLET PO PRN ×2 (16:05→23:02)
--- NOTE | 2017-03-03 16:32 | Gastroenterology Consult Note ---
<AnnCheng Radha - Last Filed: 03/03/17 16:43> Date of Encounter: 03/03/17 Time of Encounter: 12:05 - Assessment and plan (1) Ileus Current Visit: Yes Status: Resolved Assessment and plan: Noted on CT. NG tube inserted. Repeat CT shows resolution of ileus. (2) Elevated liver enzymes Current Visit: No Status: Acute Assessment and plan: Check MRCP to r/o obstruction. Could be due to cirrhosis. (3) Abdominal pain Current Visit: No Status: Acute Assessment and plan: Unknown etiology. Could be due to pancreatitis, CT A/P not definitive for pancreatitis and lipase WNL. Ileus has resolved. Check MRCP to r/o obstruction. Check MRI abdomen with contrast to evaluate liver due to concern for cirrhosis. Qualifiers: Abdominal location: epigastric Qualified Code(s): R10.13 - Epigastric pain (4) Thrombocytopenia Current Visit: Yes Status: Acute Assessment and plan: Likely secondary to cirrhosis. (5) Cirrhosis Current Visit: Yes Status: Acute Assessment and plan: Pt states she has not drank alcohol in "a long time". Check MRI abdomen with contrast to evaluate. MELD-NA 23, Child-Ho Class B, DF 15.1. Qualifiers: Hepatic cirrhosis type: unspecified hepatic cirrhosis Ascites presence: without ascites Qualified Code(s): K74.60 - Unspecified cirrhosis of liver - Time Spent With Patient Total time spent is greater than 50% in coordination of care (as documented) at patient's floor/unit and/or counseling patient: GI History of Present Illness - Data of Consult Patient: new to practice Consult date: 03/03/17 Requesting Physician: Abby Harrison - Consult Narrative Reason for consult: Abdoominal pain History of present illness: Ms. Hernandez is a 61 year old female with PMHx of asthma, COPD, CVA, DM, HTN, who presented to the ED with abdominal pain with associated nausea, vomiting, and loose stools. She reported it jaleesa similar to episode of pancreatitis in the past. She denies fever, chills, chest pain, SOB. She states she has not drank alcohol in 8 months. Imaging consistent with pancreatitis versus gastritis /duodenitis. Her abdomen became distended and acute abdominal series was consistent with possible ileus with dilated ascending and transverse colon. Mild to moderate stool volume. NG tube was inserted and distention improved. Repeat CT A/P showed trace bilateral pleural effusions and bibasilar atelectasis. Mural thickening is demonstrated of the stomach which can relate to gastritis or any appropriate clinical setting, neoplasm. There is also retroperitoneal adenopathy and adenopathy within the lower chest which can be reactive or neoplastic. Follow-up to resolution is recommended. Fecal loading of the colon. Marked bladder distention. Procedures: None NSAIDs: None Anticoagulation: None Past Med Surg Social Fam HX - Past Medical History Medical history: asthma, COPD, CVA, diabetes, hypertension, kidney stones, thyroid disease Psychiatric history: anxiety, bipolar, depression - Past Surgical History Surgical History: cholecystectomy, colectomy, coronary bypass (CABG), hysterectomy, splenectomy - Social History Smoking Status: Former smoker Smokeless Tobacco Status: No Alcohol use: none Drug use: none - Family History Father Hx Family Cardiac Disorders: Yes (MYOCARDIAL INFARCTION.) - Gastrointestinal Gastrointestinal: Present: as per HPI - Constitutional Constitutional: as per HPI - EENT Eyes: as per HPI Ears: Present: as per HPI Nose, mouth and throat: Present: as per HPI - Cardiovascular Cardiovascular ROS: Present: as per HPI - Respiratory Respiratory IM: Present: as per HPI - Genitourinary Genitourinary: Absent: change in color, Urinary frequency - Neurological ROS Neurological GI: Present: as per HPI - Hematologic/Lymphatic Hematologic/Lymphatic pediatric: Present: as per HPI - Musculoskeletal Musculoskeletal ROS GI: Present: as per HPI - Integumentary Integumentary GI: Present: as per HPI - Psychiatric ROS Psychiatric GI: Present: as per HPI - Endocrine Endocrine IM: Present: as per HPI - Constitutional Vitals: Temp Pulse Resp BP Pulse Ox 98.0 F 95 17 142/78 95 03/03/17 15:39 03/03/17 15:39 03/03/17 15:39 03/03/17 15:39 03/03/17 15:39 General appearance: Present: cooperative, A&O X 3, no acute distress, answers questions appropriately - Head Head exam: Present: atraumatic, normocephalic - Eye Eye exam: Present: normal appearance, sclera anicteric - ENT ENT exam: Present: mucous membranes moist - Neck Neck exam general surgery: Present: normal inspection, trachea midline - Respiratory Respiratory exam: Present: decreased breath sounds, CTAB - Cardiovascular Cardiovascular exam: Present: RRR, +S1, +S2 - GI/Abdominal GI/Abdominal exam: Present: soft, tenderness (diffuse), no peritoneal signs. Absent: distended, firm, guarding - Rectal Rectal exam: Present: deferred - Extremities Exam Extremities exam: Present: warm - Neurological Exam Neurological exam: Present: no focal deficits - Psychiatric Psychiatric exam: Present: normal affect, normal mood - Skin Skin exam: Present: dry, intact, normal color, warm Results - Labs CBC & Chem 7: 03/03/17 04:02 03/03/17 04:02 Labs: Last Result Calcium 8.6 mg/dL (8.6-10.8) 03/03/17 04:02 Troponin I 0.01 ng/mL (0-0.03) 02/27/17 14:44 Triglycerides 106 mg/dL (< 150) 03/01/17 04:30 Stool Occult Blood Positive (Negative) A 03/03/17 11:30 Entire Visit Hgb 12.4 g/dL (11.5-15.4) 03/03/17 04:02 Hct 36.8 % (35.3-44.9) 03/03/17 04:02 PT 13.3 Seconds (9.4-12.1) H 02/27/17 20:57 Total Bilirubin 2.1 mg/dL (0.2-1.2) H 03/03/17 04:02 AST 375 Units/L (5-34) H 03/03/17 04:02 ALT 264 Units/L (0-55) H 03/03/17 04:02 Lipase 26 Units/L (8-78) 02/27/17 14:44 Acetaminophen < 1.0 mcg/mL (10-30) L 02/27/17 14:44 - ABG ABG results: PT/INR, D-dimer PT 13.3 Seconds (9.4-12.1) H 02/27/17 20:57 Consult Discharge Plan - Plan Referrals: Zane Chavira DO [Primary Care Provider] - <Laly Dawn - Last Filed: 03/03/17 17:33> Date of Encounter: 03/03/17 Time of Encounter: 17:00 - Time Spent With Patient Total time spent is greater than 50% in coordination of care (as documented) at patient's floor/unit and/or counseling patient: GI History of Present Illness - Data of Consult Requesting Physician: Abby Harrison - Consult Narrative History of present illness: Ms. Hernandez is a 61 year old female - Constitutional Vitals: Temp Pulse Resp BP Pulse Ox 98.0 F 95 17 142/78 95 03/03/17 15:39 03/03/17 15:39 03/03/17 15:39 03/03/17 15:39 03/03/17 15:39 Results - Labs CBC & Chem 7: 03/03/17 04:02 03/03/17 04:02 Labs: Last Result Calcium 8.6 mg/dL (8.6-10.8) 03/03/17 04:02 Troponin I 0.01 ng/mL (0-0.03) 02/27/17 14:44 Triglycerides 106 mg/dL (< 150) 03/01/17 04:30 Stool Occult Blood Positive (Negative) A 03/03/17 11:30 Entire Visit Hgb 12.4 g/dL (11.5-15.4) 03/03/17 04:02 Hct 36.8 % (35.3-44.9) 03/03/17 04:02 PT 13.3 Seconds (9.4-12.1) H 02/27/17 20:57 Total Bilirubin 2.1 mg/dL (0.2-1.2) H 03/03/17 04:02 AST 375 Units/L (5-34) H 03/03/17 04:02 ALT 264 Units/L (0-55) H 03/03/17 04:02 Lipase 26 Units/L (8-78) 02/27/17 14:44 Acetaminophen < 1.0 mcg/mL (10-30) L 02/27/17 14:44 - ABG ABG results: PT/INR, D-dimer PT 13.3 Seconds (9.4-12.1) H 02/27/17 20:57 - Attending Attestation I examined this patient and my medical decision-making was reviewed with the TRAVELING ACCOUNTANT/PA/Advanced Practice Nurse/Resident Physician. I agree with the documented findings, disposition and treatment plan as described except to the extent set forth below.
[2017-03-04] MEDS: Ipratropium/Albuterol Neb 3 ML IH SCH ×6 (04:15→23:35)
[2017-03-04] MEDS: Pantoprazole 40 MG VIAL IVP SCH (05:37)
[2017-03-04 06:51] LABS: Red Cell Distribution Width 15.7 % (11.5-14.5)
[2017-03-04 06:53] LABS: Basophils % 0.9 %; Eosinophils # 0.1 K/mcL (0.0-0.6); Eosinophils % 2.5 %; Hematocrit 32.9 % (35.3-44.9); Hemoglobin 10.9 g/dL (11.5-15.4); Immature Granulocytes % 0.5 % (0-4); Immature Platelets 6.4 % (1.1-6.1); Lymphocytes # 1.5 K/mcL (0.6-4.6); Lymphocytes % 34.4 %; Mean Corpuscular HGB Conc 33.1 g/dL (31.6-35.5); Mean Corpuscular Hemoglobin 31.2 pg (28.0-33.3); Mean Corpuscular Volume 94.3 fL (83.0-100.0); Mean Platelet Volume 12.4 fL (9.4-12.4); Monocytes # 0.4 K/mcL (0.0-1.3); Monocytes % 8.3 %; Neutrophils # 2.4 K/mcL (1.6-8.9); Platelet Count 72 K/mcL (140-400); Red Blood Count 3.49 M/mcL (3.82-4.97); Segmented Neutrophils % 53.4 %
[2017-03-04 07:05] LABS: BUN/Creatinine Ratio 13 (6-26); Blood Urea Nitrogen 12 mg/dL (7-20); Calcium 7.9 mg/dL (8.6-10.8); Carbon Dioxide 23 mEq/L (19-29); Chloride 102 mEq/L (98-109); Glucose 403 mg/dL (70-99); Osmolality,Calculated 289 (280-300); Potassium 4.1 mEq/L (3.5-4.5); Sodium 131 mEq/L (136-145); eGFR For African Americans > 60 (> 60); eGFR For Non-African Americans > 60 (> 60)
[2017-03-04] MEDS: Budesonide/Formoterol 160/4.5 MDI IH SCH ×2 (07:45→19:54)
[2017-03-04] MEDS: carBAMazepine 200 MG TABLET PO SCH ×2 (07:59→22:24)
[2017-03-04] MEDS: *HR* Morphine 2 MG/ML SYRINGE IVP PRN ×3 (08:08→22:25)
[2017-03-04] MEDS: Insulin LISPRO 300 UNITS/3 ML VIAL SQ SCH ×4 (08:09→22:31)
--- NOTE | 2017-03-04 10:30 | Internal Med Progress Note ---
<Zane Chavira - Last Filed: 03/04/17 14:48> Date of Encounter: 03/04/17 Time of Encounter: 10:15 - Assessment and plan (1) Transaminitis Current Visit: Yes Status: Acute Assessment and plan: Patient continues to have stable, elevated liver transaminases with other laboratory abnormalities including increased bilirubin and alkaline phosphatase. Current etiology unclear, but likely related to liver cirrhosis. No intra-/extrahepatic biliary duct dilation seen or stones observed on MRI. Will undergo thorough hepatitis workup GI following and appreciate her recommendations for continued management/care (2) Abdominal pain Current Visit: Yes Status: Acute Assessment and plan: Plan as above Qualifiers: Abdominal location: unspecified location Qualified Code(s): R10.9 - Unspecified abdominal pain (3) Ileus Current Visit: Yes Status: Resolved Assessment and plan: Ileus appears to have resolved. No signs of ilieus or obstruction on repeat CT. GI is following appreciate recommendations for continued management/care (4) Thrombocytopenia Current Visit: Yes Status: Acute Assessment and plan: Likely chronic given continued low platelet seen inpatient labs. Likely related to patient's liver disease. Patient will begin hepatitis workup. Dr. mccarty, with gastroenterology, is following. (5) Type 2 diabetes mellitus Current Visit: Yes Status: Chronic Assessment and plan: Patient on long-term insulin usage at home, unsure of patient compliance as A1c was 11.1 at last check last week. Glucose over 600 upon arrival, no anion gap or acidosis observed. She has had a few uneventful hypoglycemic episodes despite basal and ACHS dosing being decreased. Suggesting lack of compliance at home. Her basal insulin was stopped and she was placed on low-dose sliding scale insulin Will monitor and adjust medications when the patient is able to start drinking/ eating again Currently on D5/.45 IV fluids Qualifiers: Diabetes mellitus complication status: with hyperglycemia Diabetes mellitus assistant terminal manager insulin use: with assistant terminal manager use Qualified Code(s): E11.65 - Type 2 diabetes mellitus with hyperglycemia; Z79.4 - shelter (current) use of insulin (6) CAD (coronary artery disease) Current Visit: No Status: Chronic Qualifiers: Coronary Disease-Associated Artery/Lesion type: bypass graft [place] vs. transplanted heart: [place] heart Associated angina: without angina Qualified Code(s): I25.810 - Atherosclerosis of coronary artery bypass graft(s) without angina pectoris (7) DVT prophylaxis Current Visit: Yes Status: Acute Assessment and plan: EPCDs - Subjective Interval history: Patient reports she has continued pain in her abdomen though is under better control has been. She reports is currently 7/10 in severity in her epigastric and lower left quadrant. She states her epigastric pain continues to radiate to her back, that her left lower quadrant pain radiates to her right upper quadrant. She states she is continuing to have constipation and only producing a small amount of yellow/whitish stool. She denies chest pain, dyspnea, fevers , nausea/vomiting. - Constitutional Vitals: Temp Pulse Resp BP Pulse Ox 98.0 F 71 18 126/65 99 03/04/17 07:30 03/04/17 07:30 03/04/17 07:47 03/04/17 07:30 03/04/17 07:47 General appearance: Present: A&O X 3, no acute distress, answers questions appropriately Exam: General: Cooperative, pleasant, no acute distress, alert and oriented 3, answers questions appropriately HEENT: Normocephalic, atraumatic, Conjunctiva pink, sclera anicteric, PERRL, oral mucosa moist, no orophargeal erythema or exudates Respiratory: No accessory muscle usage, clear to auscultation bilaterally, no wheezes/rhonchi/rales appreciated Cardiovascular: Regular rate and rhythm, S1 and S2 present, no murmurs/rubs/ gallops/clicks appreciated GI/abdominal: Nondistended, tenderness to palpation left lower quadrant, hepatomegaly, soft, hypoactive bowel sounds, no peritoneal signs Extremities: No calf tenderness, noncyanotic, no lower extremity edema appreciated, warm, lower extremity pulses palpable and symmetrical Neurological: Alert and oriented 3, no facial droop, no focal deficits Skin: Dry, intact, normal color Internal Medicine: Result - Labs CBC & Chem 7: 03/04/17 06:02 03/04/17 06:02 Labs: Short CBC 03/04/17 Range/Units 06:02 WBC 4.4 (4.3-11.1) K/mcL Hgb 10.9 L D (11.5-15.4) g/dL Hct 32.9 L (35.3-44.9) % Plt Count 72 L (140-400) K/mcL Neutrophils # 2.4 (1.6-8.9) K/mcL BMP 03/04/17 06:02 Sodium 131 L Potassium 4.1 Chloride 102 Carbon Dioxide 23 BUN 12 Creatinine 0.90 Glucose 403 H Calcium 7.9 L - ABG Interpretation ABG results: PT/INR, D-dimer PT 13.3 Seconds (9.4-12.1) H 02/27/17 20:57 - Impressions Impressions Abdomen MRI 03/03/17 12:52 IMPRESSION: Mild splenomegaly. No significant intra/ extrahepatic biliary ductal dilation ; no biliary ductal stones suspected. D/ / Nara Goddard Cha, MD / Nara Goddard Cha, MD Interpreting Provider: Nara Goddard Cha, MD Consult Discharge Plan - Plan Referrals: Zane Chavira DO [Primary Care Provider] - <Gasper Saldana - Last Filed: 03/04/17 17:51> Date of Encounter: 03/04/17 - Constitutional Vitals: Temp Pulse Resp BP Pulse Ox 98.2 F 78 16 149/70 99 03/04/17 15:39 03/04/17 15:39 03/04/17 16:23 03/04/17 15:39 03/04/17 16:23 Internal Medicine: Result - Labs CBC & Chem 7: 03/04/17 06:02 03/04/17 06:02 Labs: Short CBC 03/04/17 Range/Units 06:02 WBC 4.4 (4.3-11.1) K/mcL Hgb 10.9 L D (11.5-15.4) g/dL Hct 32.9 L (35.3-44.9) % Plt Count 72 L (140-400) K/mcL Neutrophils # 2.4 (1.6-8.9) K/mcL BMP 03/04/17 06:02 Sodium 131 L Potassium 4.1 Chloride 102 Carbon Dioxide 23 BUN 12 Creatinine 0.90 Glucose 403 H Calcium 7.9 L Liver Function 03/04/17 Range/Units 14:29 Total Bilirubin 1.6 H (0.2-1.2) mg/dL Direct Bilirubin 1.1 H (0.0-0.5) mg/dL AST 233 H (5-34) Units/L ALT 210 H (0-55) Units/L Alkaline Phosphatase 622 H (38-126) Units/L Albumin 2.6 L (3.5-5.0) g/dL - ABG Interpretation ABG results: PT/INR, D-dimer PT 13.3 Seconds (9.4-12.1) H 02/27/17 20:57 - Impressions Impressions Abdomen MRI 03/03/17 12:52 IMPRESSION: Mild splenomegaly. No significant intra/ extrahepatic biliary ductal dilation ; no biliary ductal stones suspected. D/ / Nara Goddard Cha, MD / Nara Goddard Cha, MD Interpreting Provider: Nara Goddard Cha, MD - Attending Attestation I examined this patient and my medical decision-making was reviewed with the SHOE PATTERNMAKER/PA/Advanced Practice Nurse/Resident Physician. I agree with the documented findings, disposition and treatment plan as described except to the extent set forth below. Hepatitis workup including autoimmune causes.
--- NOTE | 2017-03-04 14:09 | Gastroenterology Progress Note ---
Date of Encounter: 03/04/17 Time of Encounter: 11:10 - Assessment and plan (1) Ileus Current Visit: Yes Status: Resolved Assessment and plan: Noted on CT. NG tube inserted. Repeat CT shows resolution of ileus. (2) Elevated liver enzymes Current Visit: No Status: Acute Assessment and plan: Could be due to cirrhosis. MR showed no significant intra/extrahepatic biliary ductal dilation and no biliary ductal stones suspected. Check hepatic panel. (3) Abdominal pain Current Visit: No Status: Acute Assessment and plan: Unknown etiology. Could be due to pancreatitis, CT A/P not definitive for pancreatitis and lipase WNL. Ileus has resolved. MR showed no significant intra/ extrahepatic biliary ductal dilation and no biliary ductal stones suspected. Plan for EGD. Qualifiers: Abdominal location: epigastric Qualified Code(s): R10.13 - Epigastric pain (4) Thrombocytopenia Current Visit: Yes Status: Acute Assessment and plan: Likely secondary to cirrhosis. (5) Cirrhosis Current Visit: Yes Status: Acute Assessment and plan: Pt states she has not drank alcohol in "a long time". Check MRI abdomen with contrast to evaluate. On admission MELD-NA 23, Child-Ho Class B, DF 15.1. Qualifiers: Hepatic cirrhosis type: unspecified hepatic cirrhosis Ascites presence: without ascites Qualified Code(s): K74.60 - Unspecified cirrhosis of liver - Time Spent With Patient Total time spent is greater than 50% in coordination of care (as documented) at patient's floor/unit and/or counseling patient: - Subjective Interval history: Pt resting in bed and appears more comfortable than yesterday. She continues to report abdominal pain. - Constitutional Vitals: Temp Pulse Resp BP Pulse Ox 97.7 F 75 14 143/81 99 03/04/17 11:04 03/04/17 11:04 03/04/17 11:32 03/04/17 11:04 03/04/17 11:32 General appearance: Present: cooperative, A&O X 3, no acute distress, answers questions appropriately - Head Head exam: Present: atraumatic, normocephalic - Eye Eye exam: Present: normal appearance, sclera anicteric - ENT ENT exam: Present: mucous membranes moist - Neck Neck exam general surgery: Present: normal inspection, trachea midline - Respiratory Respiratory exam: Present: decreased breath sounds, CTAB. Absent: rales, rhonchi - Cardiovascular Cardiovascular exam: Present: RRR, +S1, +S2 - GI/Abdominal GI/Abdominal exam: Present: soft, tenderness (diffuse), no peritoneal signs. Absent: distended, firm, guarding - Rectal Rectal exam: Present: deferred - Extremities Exam Extremities exam: Present: warm - Neurological Exam Neurological exam: Present: no focal deficits - Psychiatric Psychiatric exam: Present: normal affect, normal mood - Skin Skin exam: Present: dry, intact, normal color, warm Results - Labs CBC & Chem 7: 03/04/17 06:02 03/04/17 06:02 Labs: Last Result Calcium 7.9 mg/dL (8.6-10.8) L 03/04/17 06:02 Troponin I 0.01 ng/mL (0-0.03) 02/27/17 14:44 Triglycerides 106 mg/dL (< 150) 03/01/17 04:30 Stool Occult Blood Positive (Negative) A 03/03/17 11:30 Entire Visit Hgb 10.9 g/dL (11.5-15.4) L D 03/04/17 06:02 Hct 32.9 % (35.3-44.9) L 03/04/17 06:02 PT 13.3 Seconds (9.4-12.1) H 02/27/17 20:57 Total Bilirubin 2.1 mg/dL (0.2-1.2) H 03/03/17 04:02 AST 375 Units/L (5-34) H 03/03/17 04:02 ALT 264 Units/L (0-55) H 03/03/17 04:02 Lipase 26 Units/L (8-78) 02/27/17 14:44 Acetaminophen < 1.0 mcg/mL (10-30) L 02/27/17 14:44 - ABG ABG results: PT/INR, D-dimer PT 13.3 Seconds (9.4-12.1) H 02/27/17 20:57 - Impressions Impressions Abdomen MRI 03/03/17 12:52 IMPRESSION: Mild splenomegaly. No significant intra/ extrahepatic biliary ductal dilation ; no biliary ductal stones suspected. D/ / Nara Goddard Cha, MD / Nara Goddard Cha, MD Interpreting Provider: Nara Goddard Cha, MD Consult Discharge Plan - Plan Referrals: Zane Chavira DO [Primary Care Provider] -
--- NOTE | 2017-03-04 14:41 | Anesthesia Evaluation PreOp ---
Date of Encounter: 03/04/17 Time of Encounter: 14:40 - Past History Planned Operation: EGD Cardiac History: HTN, Cardiac Surgery Pulmonary History: Former smoker, Asthma, COPD Other Medical History: Diabetes Type II Anesthesia History: No Prior Anesthetic Complications : No Alcohol Use: none (History of alcohol abuse) Drug use: none Medications and Allergies Albuterol Neb [AccuNeb] 0.63 mg IH Q6H PRN 05/30/15 [History] Albuterol Sulfate [Albuterol Inhaler] 2 puff IH Q4HR PRN 05/30/15 [History] Docusate [Colace] 200 mg PO DAILY 05/30/15 [History] Fluticasone/Salmeterol [Advair 500-50 Diskus] 1 each IH BID 05/30/15 [History] Insulin ASPART [NovoLOG] 0 unit SQ TIDWM 05/30/15 [History] Insulin Glargine,Hum.rec.anlog [Lantus Solostar] 40 unit SQ BID 05/30/15 [ History] Ipratropium/Albuterol Neb [Duoneb] 3 ml IH Q6HR PRN 05/30/15 [History] Nitroglycerin 0.4 mg SL Q5MIN PRN 05/30/15 [History] Levothyroxine [Synthroid] 175 mcg PO QAM 02/27/17 [History] Quetiapine Fumarate [SEROquel] 25 mg PO QAM 02/27/17 [History] Quetiapine Fumarate [SEROquel] 100 mg PO HS 02/27/17 [History] Simvastatin [Zocor] 20 mg PO HS 02/27/17 [History] carBAMazepine [Tegretol] 400 mg PO BID 02/27/17 [History] Allergies penicillin G Adverse Reaction (Verified 02/27/17 12:47) Hives Sulfa (Sulfonamide Antibiotics) Adverse Reaction (Verified 02/27/17 12:47) See Comments listed on pcp 02-14-16 - Meds/Allergy Pre-op Review Medications Reviewed: Yes Allergies Reviewed: Yes Beta Blockers on Current Med List: Yes Anesthesia Results - Labs 03/04/17 06:02 03/04/17 06:02 Anesthesia Exam vss
[2017-03-04] MEDS ORDERED: 0.9 % Sodium Chloride 1,000 ML IVC SCH (14:45)
[2017-03-04 15:03] LABS: Albumin 2.6 g/dL (3.5-5.0); Albumin/Globulin Ratio 0.5 (1.1-2.2); Bilirubin,Direct 1.1 mg/dL (0.0-0.5); Bilirubin,Indirect 0.5 mg/dL (0.0-1.2); Bilirubin,Total 1.6 mg/dL (0.2-1.2); Globulin 5.7 g/dL (2.4-3.5); Total Protein 8.3 g/dL (6.0-8.3)
--- NOTE | 2017-03-04 15:06 | Anesthesia Evaluation PreOp ---
Date of Encounter: 03/04/17 Time of Encounter: 14:40 - Past History Alcohol Use: none (History of alcohol abuse) Drug use: none Medications and Allergies Albuterol Neb [AccuNeb] 0.63 mg IH Q6H PRN 05/30/15 [History] Albuterol Sulfate [Albuterol Inhaler] 2 puff IH Q4HR PRN 05/30/15 [History] Docusate [Colace] 200 mg PO DAILY 05/30/15 [History] Fluticasone/Salmeterol [Advair 500-50 Diskus] 1 each IH BID 05/30/15 [History] Insulin ASPART [NovoLOG] 0 unit SQ TIDWM 05/30/15 [History] Insulin Glargine,Hum.rec.anlog [Lantus Solostar] 40 unit SQ BID 05/30/15 [ History] Ipratropium/Albuterol Neb [Duoneb] 3 ml IH Q6HR PRN 05/30/15 [History] Nitroglycerin 0.4 mg SL Q5MIN PRN 05/30/15 [History] Levothyroxine [Synthroid] 175 mcg PO QAM 02/27/17 [History] Quetiapine Fumarate [SEROquel] 25 mg PO QAM 02/27/17 [History] Quetiapine Fumarate [SEROquel] 100 mg PO HS 02/27/17 [History] Simvastatin [Zocor] 20 mg PO HS 02/27/17 [History] carBAMazepine [Tegretol] 400 mg PO BID 02/27/17 [History] Allergies penicillin G Adverse Reaction (Verified 02/27/17 12:47) Hives Sulfa (Sulfonamide Antibiotics) Adverse Reaction (Verified 02/27/17 12:47) See Comments listed on pcp 02-14-16 Anesthesia Results - Labs 03/04/17 06:02 03/04/17 06:02 - Imaging EKG: report reviewed Chest x-ray: report reviewed Anesthesia Exam vss NPO (# of Hours): 6 hrs Pain Scale: 9 Pain Scale Used: Numeric (1 - 10) - HEENT Pupil (Motor): Pupils equal Mallampati: II Teeth: Edentulous Denture Type: Upper: Complete, Lower: Complete Oral Opening: Greater than 3 - HOOKER INSPECTOR HOOKER INSPECTOR Motor: Normal RUE, Normal LUE, Normal RLE, Normal LLE, Normal Face HOOKER INSPECTOR Sensory: Normal: RUE, LUE, RLE, LLE, Face - Cardiac Rhythm: Regular Murmur: None JVD: No Carotid Bruit: No - Pulmonary Breath Sounds: bilateral Clear
--- NOTE | 2017-03-04 15:12 | Anesthesia Evaluation Post Op ---
Date of Encounter: 03/04/17 Time of Encounter: 15:10 - Vital Signs Vital Signs: 3 Vital Signs Time 1510 BP 131/78 Pulse 71 Resp 16 O2 Sat 97 - Lungs Lungs: Clear Ascult./Percussion - Airway Airway: Non-obstructed - Cardiovascular Regular Rate - Mental Status Mental Status: Asleep with brisk response to light stimulation - Pain Pain Scale: 0 Pain Scale used: Numeric (1 - 10) - Nausea Vomiting Nausea Vomiting: Not Present - Hydration Hydration: NPO, Has not voided - Discharge PostOp Status: Transfer Patient to floor
[2017-03-04] MEDS ORDERED: Sennosides/Docusate Sodium TABLET PO PRN (15:20)
[2017-03-04] MEDS: Ondansetron 4 MG/2 ML VIAL IVP PRN (15:58)
[2017-03-04 19:59] LABS: Hepatitis B Surface Antigen Reactive (Nonreactive)
[2017-03-04] MEDS: ALPRAZolam 1 MG TABLET PO PRN (22:25)
[2017-03-05] MEDS: D5% in 0.45% NACL 1,000 ML IVC SCH (01:16)
[2017-03-05] MEDS: Ipratropium/Albuterol Neb 3 ML IH SCH ×3 (04:14→11:15)
[2017-03-05 04:57] LABS: Basophils % 0.7 %; Hemoglobin 10.8 g/dL (11.5-15.4)
[2017-03-05 04:59] LABS: Eosinophils # 0.1 K/mcL (0.0-0.6); Eosinophils % 2.1 %; Hematocrit 31.7 % (35.3-44.9); Immature Platelets 5.7 % (1.1-6.1); Lymphocytes # 1.6 K/mcL (0.6-4.6); Lymphocytes % 36.9 %; Mean Corpuscular HGB Conc 34.1 g/dL (31.6-35.5); Mean Corpuscular Hemoglobin 31.7 pg (28.0-33.3); Mean Platelet Volume 11.6 fL (9.4-12.4); Monocytes # 0.4 K/mcL (0.0-1.3); Neutrophils # 2.2 K/mcL (1.6-8.9); Red Blood Count 3.41 M/mcL (3.82-4.97); Red Cell Distribution Width 15.3 % (11.5-14.5); Segmented Neutrophils % 51.3 %
[2017-03-05 05:06] LABS: Platelet Count 76 K/mcL (140-400)
[2017-03-05] MEDS: *HR* Morphine 2 MG/ML SYRINGE IVP PRN ×2 (05:07→09:07)
[2017-03-05] MEDS: Pantoprazole 40 MG VIAL IVP SCH (05:07)
[2017-03-05 05:16] LABS: Alanine Aminotransferase 187 Units/L (0-55); Albumin 2.4 g/dL (3.5-5.0); Albumin/Globulin Ratio 0.4 (1.1-2.2); Alkaline Phosphatase 577 Units/L (38-126); Aspartate Amino Transferase 202 Units/L (5-34); BUN/Creatinine Ratio 12 (6-26); Bilirubin,Total 1.4 mg/dL (0.2-1.2); Blood Urea Nitrogen 11 mg/dL (7-20); Calcium 8.2 mg/dL (8.6-10.8); Carbon Dioxide 25 mEq/L (19-29); Chloride 100 mEq/L (98-109); Globulin 5.6 g/dL (2.4-3.5); Glucose 339 mg/dL (70-99); Osmolality,Calculated 281 (280-300); Potassium 4.3 mEq/L (3.5-4.5); Sodium 129 mEq/L (136-145); eGFR For African Americans > 60 (> 60); eGFR For Non-African Americans > 60 (> 60)
[2017-03-05] MEDS: Budesonide/Formoterol 160/4.5 MDI IH SCH (08:11)
[2017-03-05 08:21] VITALS: BP 128/61
[2017-03-05] MEDS: carBAMazepine 200 MG TABLET PO SCH (08:50)
[2017-03-05] MEDS: Insulin LISPRO 300 UNITS/3 ML VIAL SQ SCH (08:51)
[2017-03-05] MEDS: ALPRAZolam 1 MG TABLET PO PRN (08:51)
--- NOTE | 2017-03-05 10:45 | Discharge Summary ---
<Zane Chavira - Last Filed: 03/05/17 10:43> Date of Encounter: 03/05/17 Time of Encounter: 09:25 - Discharge Diagnosis (1) Cirrhosis Priority: Primary Status: Acute Qualifiers: Hepatic cirrhosis type: unspecified hepatic cirrhosis Ascites presence: without ascites Qualified Code(s): K74.60 - Unspecified cirrhosis of liver (2) Hepatitis B Priority: Primary Status: Acute Qualifiers: Viral hepatitis chronicity: acute Hepatic coma status: without hepatic coma Hepatitis delta agent presence: without delta-agent Qualified Code(s): B16.9 - Acute hepatitis B without delta-agent and without hepatic coma (3) Abdominal pain Priority: Primary Status: Acute Qualifiers: Abdominal location: unspecified location Qualified Code(s): R10.9 - Unspecified abdominal pain (4) Ileus Priority: Primary Status: Resolved (5) Thrombocytopenia Priority: Secondary Status: Acute (6) Type 2 diabetes mellitus Priority: Primary Status: Chronic Qualifiers: Diabetes mellitus complication status: with hyperglycemia Diabetes mellitus [facility] insulin use: with local company intermodal truck driver use Qualified Code(s): E11.65 - Type 2 diabetes mellitus with hyperglycemia; Z79.4 - correction (current) use of insulin (7) CAD (coronary artery disease) Priority: Primary Status: Chronic Qualifiers: Coronary Disease-Associated Artery/Lesion type: bypass graft [place] vs. transplanted heart: [place] heart Associated angina: without angina Qualified Code(s): I25.810 - Atherosclerosis of coronary artery bypass graft(s) without angina pectoris (8) DVT prophylaxis Priority: Secondary Status: Acute - Discharge Medications Prescriptions: ALPRAZolam [Xanax 1 MG Tablet] 1 mg PO TID PRN #21 tablet PRN Reason: Anxiety Lipase/Protease/Amylase [Johan Dr 6,000 Units Capsule] 1 each PO TIDAC 30 Days Nadolol 20 mg PO DAILY 30 Days Oxycodone HCl [Oxaydo] 5 mg PO TID PRN #21 tablet.orl PRN Reason: Abdominal Pain Home Medications: Albuterol Neb [AccuNeb] 0.63 mg IH Q6H PRN 05/30/15 [History] Albuterol Sulfate [Albuterol Inhaler] 2 puff IH Q4HR PRN 05/30/15 [History] Docusate [Colace] 200 mg PO DAILY 09/01/15 [History] Fluticasone/Salmeterol [Advair 500-50 Diskus] 1 each IH BID 05/30/15 [History] Insulin ASPART [NovoLOG] 0 unit SQ TIDWM 05/30/15 [History] Insulin Glargine,Hum.rec.anlog [Lantus Solostar] 40 unit SQ BID 05/30/15 [ History] Ipratropium/Albuterol Neb [Duoneb] 3 ml IH Q6HR PRN 05/30/15 [History] Nitroglycerin 0.4 mg SL Q5MIN PRN 05/30/15 [History] Levothyroxine [Synthroid] 175 mcg PO QAM 02/27/17 [History] Quetiapine Fumarate [Seroquel] 25 mg PO QAM 02/27/17 [History] Quetiapine Fumarate [Seroquel] 100 mg PO HS 02/27/17 [History] Simvastatin [Zocor] 20 mg PO HS 02/27/17 [History] carBAMazepine [Tegretol] 400 mg PO BID 02/27/17 [History] ALPRAZolam [Xanax 1 MG Tablet] 1 mg PO TID PRN #21 tablet 03/05/17 [Rx] Lipase/Protease/Amylase [Creon Dr 6,000 Units Capsule] 1 each PO TIDAC 30 Days 03/05/17 [Rx] Nadolol 20 mg PO DAILY 30 Days 03/05/17 [Rx] Oxycodone HCl [Oxaydo] 5 mg PO TID PRN #21 tablet.orl 03/05/17 [Rx] Allergies/Adverse Reactions: Allergies penicillin G Adverse Reaction (Verified 02/27/17 12:47) Hives Sulfa (Sulfonamide Antibiotics) Adverse Reaction (Verified 02/27/17 12:47) See Comments listed on pcp 02-14-16 Procedures/tests Complete & Pending: Procedures Performed prior 72 hours Category Date Time Status CT abd pelvis w iv no oral [CT] Routine Cat Scan 03/02/17 15:08 Taken MR abdomen wo/w con [MR] Stat MRI 03/03/17 12:52 Completed Date of admission: 03/01/17 16:15 Primary care physician: Zane Chavira DO Consults: 03/03/17 08:30 Consult to Gastroenterology [CONS] Routine Consulting Provider: [facility] Reason for Consult: here for abd pain. original CT with pancreatitis, gastritis and duodenitis. developed ileus over the weekend- NG placed. Repeat CT today shows gastritis vs neoplasm. please eval and advise. Time Notified: 08:31 Call Completed: Yes Discharging clinician: Zane Chavira Anticipated date of discharge: 03/05/17 - Patient Status Disposition: Home, Self-Care Condition: Fair Functional capacity at discharge: independent ambulation Overall status at discharge: patient is progressing back to baseline - Discharge Instructions Instructions: How to Check Your Blood Sugar (DC), Diabetic Hyperglycemia (DC) Follow Up With: Zane Chavira DO [Primary Care Provider] - 03/12/17 1:30 pm Laly Dawn MD [Partnered Physician] - Additional Instructions: Take medications as prescribed: Oxycodone 5 mg 3 times a day as needed for abdominal pain Creon/pancreatic enzymes daily Nadolol 20 mg Daily Continue insulin per her normal regimen Follow-up with your PCP, Dr. Chavira, at the residency clinic in 7 days. Patient has scheduled appointment at 1:30 in the afternoon on Friday, March 12 Follow-up with gastroenterology, Dr. Dawn, in one month for further evaluation of liver disease Stay well hydrated with rest. Avoid Tylenol and alcohol. Return to emergency room if continued uncontrolled abdominal pain, new abdominal pain, uncontrolled blood sugars, new chest pain, or shortness of breath Found to have hepatitis B and mild liver cirrhosis Hepatitis B is usually acute and not long-term, supportive care with reevaluation per GI and your PCP - Diet and Activity Activity: increase activity as tolerated Diet: diabetic diet, low salt diet Interval History: Patient reports feeling slightly improved today, but does report continued abdominal pain. She reports continued cough in need of breathing treatment, but overall doing well. Spoke with GI and patient is okay for discharge with follow-up for patient cirrhosis Hospital course: Ms. Hernandez is a 61 year old female with prior medical history of COPD, CAD, pancreatitis, and uncontrolled diabetes who came to the hospital on 02/27/17 due to numerous abdominal symptoms and abnormal lab seen by her PCP. At initial presentation she had abdominal pain, nausea, vomiting and she was found to have an ileus. She had supportive care including NG tube placement and decompression after which she did feel somewhat improved in her ileus resolved. She continued to have elevated transaminases, bilirubin, and alkaline phosphatase but has history of cholecystectomy. Evaluation through imaging did not show any ductal dilation or stones in the common bile duct, but after EGD was performed she was seen to have small varices indicative of liver cirrhosis. In the course of her lab evaluation she was found to have acute hepatitis B contributing to her overall abdominal symptoms. At this point with her symptoms and signs have been slowly improving after discussion with gastroenterology, she is safe/stable for discharge with follow- up with her PCP in one week and follow-up with GI in 1 month for further evaluation of her liver cirrhosis. - Time Spent with Patient Total time spent providing and/or coordinating discharge services: - Constitutional Vitals: Temp Pulse Resp BP Pulse Ox 98.0 F 74 16 128/61 100 03/05/17 08:20 03/05/17 08:20 03/05/17 08:20 03/05/17 08:20 03/05/17 08:20 General appearance: Present: A&O X 3, no acute distress, answers questions appropriately Exam: General: Cooperative, pleasant, no acute distress, alert and oriented 3, answers questions appropriately HEENT: Normocephalic, atraumatic, Conjunctiva pink, sclera anicteric, PERRL, oral mucosa moist, no orophargeal erythema or exudates Respiratory: No accessory muscle usage, mild diffuse wheezes bilaterally Cardiovascular: Regular rate and rhythm, S1 and S2 present, no murmurs/rubs/ gallops/clicks appreciated GI/abdominal: Nondistended, tenderness to palpation left lower quadrant, hepatomegaly, soft, hypoactive bowel sounds, no peritoneal signs Extremities: No calf tenderness, noncyanotic, no lower extremity edema appreciated, warm, lower extremity pulses palpable and symmetrical Neurological: Alert and oriented 3, no facial droop, no focal deficits Skin: Dry, intact, normal color <Gasper Saldana - Last Filed: 03/05/17 17:56> Date of Encounter: 03/05/17 Procedures/tests Complete & Pending: Procedures Performed prior 72 hours Category Date Time Status MR abdomen wo/w con [MR] Stat MRI 03/03/17 12:52 Completed Date of admission: 03/01/17 16:15 Primary care physician: Zane Chavira DO Consults: 03/03/17 08:30 Consult to Gastroenterology [CONS] Routine Consulting Provider: [facility] Reason for Consult: here for abd pain. original CT with pancreatitis, gastritis and duodenitis. developed ileus over the weekend- NG placed. Repeat CT today shows gastritis vs neoplasm. please eval and advise. Time Notified: 08:31 Call Completed: Yes Hospital course: Ms. Hernandez is a 61 year old female - Time Spent with Patient Total time spent providing and/or coordinating discharge services: - Constitutional Vitals: Temp Pulse Resp BP Pulse Ox 98.0 F 74 16 128/61 100 03/05/17 08:20 03/05/17 08:20 03/05/17 08:20 03/05/17 08:20 03/05/17 08:20 - Attending Attestation I examined this patient and my medical decision-making was reviewed with the MOLECULAR SPECTROSCOPIST/PA/Advanced Practice Nurse/Resident Physician. I agree with the documented findings, disposition and treatment plan as described except to the extent set forth below. acute hepatitis B. follow [facility]fts as outpatient, gi follow up.
[2017-03-05 11:24] LABS: Hepatitis A Antibody IgM Nonreactive (Nonreactive); Hepatitis C Virus Antibody Nonreactive (Nonreactive)
[2017-03-05 11:37] LABS: Hepatitis B Core IgM Reactive (Nonreactive)
--- NOTE | 2017-03-06 15:23 | Physician Discharge Referral ---
Home Health/Hosp Referral Info Transfer to: Home Health - Diagnosis (1) COPD (chronic obstructive pulmonary disease) Status: Chronic (2) CAD (coronary artery disease) Status: Chronic (3) HTN (hypertension) Status: Chronic (4) Elevated liver enzymes Status: Acute (5) Hepatitis B Status: Acute - Respiratory Orders Smoking Cessation: Smoking cessation has been advised. For more information, call the [place] Tobacco Quit Line at 1-193-BZGR-NOW. - Diet/Nutrition Diet/Nutrition Orders: Cardiac - Activity Activity Orders: Up ad matthew - Services Needed Following services are medically necessary services: Nursing, Home Health Aide - Transfer Medications Prescriptions: ALPRAZolam [Xanax 1 MG Tablet] 1 mg PO TID PRN #21 tablet PRN Reason: Anxiety Lipase/Protease/Amylase [Creon Dr 6,000 Units Capsule] 1 each PO TIDAC 30 Days Nadolol 20 mg PO DAILY 30 Days Oxycodone HCl [Oxaydo] 5 mg PO TID PRN #21 tablet.orl PRN Reason: Abdominal Pain Home Medications: Albuterol Neb [AccuNeb] 0.63 mg IH Q6H PRN 05/30/15 [History] Albuterol Sulfate [Albuterol Inhaler] 2 puff IH Q4HR PRN 05/30/15 [History] Docusate [Colace] 200 mg PO DAILY 05/30/15 [History] Fluticasone/Salmeterol [Advair 500-50 Diskus] 1 each IH BID 05/30/15 [History] Insulin ASPART [NovoLOG] 0 unit SQ TIDWM 05/30/15 [History] Insulin Glargine,Hum.rec.anlog [Lantus Solostar] 40 unit SQ BID 05/30/15 [ History] Ipratropium/Albuterol Neb [Duoneb] 3 ml IH Q6HR PRN 05/30/15 [History] Nitroglycerin 0.4 mg SL Q5MIN PRN 05/30/15 [History] Levothyroxine [Synthroid] 175 mcg PO QAM 02/27/17 [History] Quetiapine Fumarate [Seroquel] 25 mg PO QAM 02/27/17 [History] Quetiapine Fumarate [Seroquel] 100 mg PO HS 02/27/17 [History] Simvastatin [Zocor] 20 mg PO HS 02/27/17 [History] carBAMazepine [Tegretol] 400 mg PO BID 02/27/17 [History] ALPRAZolam [Xanax 1 MG Tablet] 1 mg PO TID PRN #21 tablet 03/05/17 [Rx] Lipase/Protease/Amylase [Creon Dr 6,000 Units Capsule] 1 each PO TIDAC 30 Days 03/05/17 [Rx] Nadolol 20 mg PO DAILY 30 Days 03/05/17 [Rx] Oxycodone HCl [Oxaydo] 5 mg PO TID PRN #21 tablet.orl 03/05/17 [Rx] Allergies/Adverse Reactions: Allergies penicillin G Adverse Reaction (Verified 02/27/17 12:47) Hives Sulfa (Sulfonamide Antibiotics) Adverse Reaction (Verified 02/27/17 12:47) See Comments listed on pcp 02-14-16 Certification: Further, I certify that my clinical findings support that this patient is homebound (i.e. absences from home require considerable and taxing effort and are for medical reasons or protestant services or infrequently or short duration when for other reasons) because: Homebound Reason: Leaving home requires considerable and taxing effort due to condition Attestation: My signature below is to certify that this patient is under my care and that I, or nurse practitioner, or a physician's blood and plasma laboratory assistant working with me, has a face-to -face encounter with this patient.
[2017-03-07 08:01] LABS: AFP Tumor Marker Non-Pregnant 5 ng/mL (0-9); Alpha-1-Antitrypsin 150 mg/dL (90-200); Ceruloplasmin 33 mg/dL (17-54)
[2017-03-07 08:05] LABS: F-Actin (sm muscle) Ab IgG 94 Units (0-19)
[2017-03-07 13:30] LABS: ANA IgG by ELISA NONE DETECTED (None Detected)
[2017-03-07 15:08] LABS: Myeloperoxidase Ab 4 AU/mL (0-19); Serine Protease-3 Antibody 1 AU/mL (0-19)
[2017-03-08 10:58] LABS: Smooth Muscle Ab Titer IgG 1:20 (<1:20)
== END 2017-03-05 12:00 | disposition home or self-care (01) | DRG 441 ==
LOC: EMEROO 12:42 → 3BNU 12:42 → SUATTDRO 03-01 16:15
PROVIDERS: ADMIT Nurse Practitioner Family; ATTEND Internal Medicine